=== PATIENT | male | born 1935 | race Caucasian/White ===

== ENCOUNTER → 2016-06-23 | Outpatient (CLI) | payer OTHER, BC ==
[~2016-06-23] MED LIST: ACET-1256 PO; ALBU1AER9 INH; AMLO10TA4 PO; ASPI-435 PO; ASTN; ATOR-26 PO; CANA1TAB3 PO; CARV12.52 PO; CHLO4TAB70 PO; CHOL100010 PO; CHOL200010 PO; CHRO200T3 PO; COEN100C7 PO; CYAN100020 SL; CYAN1TAB17 PO; DEXT30SU8 PO; DEXT30TA7 PO; FINA5TAB4 PO; FLUO0.05 TOP; GUAI1TAB69 PO; GUAISYP4 PO; HYDR-5688 PO; LDXO60 TOP; LIRA18IN SC; MELATAB2 PO; METF1000 PO; METR0.7527 EX; METR0.7527 TOP; METR1GEL3 TOP; MULTTAB58 PO; OXYC1TAB3 PO; PLV75 PO; POTA1TAB97 PO; PSEU60TA80 PO; SYMIN160 INH; TRIA0.1O12 TOP; VALS320T PO; VNTHFA/IN INH
[2016-06-23 09:48] LABS: BASO % 0.8 %; BASO ABS # 0.05 K/uL (0-0.2); COMPLETE YES; HEMATOCRIT 47.1 % (42-52); IG% 0.3 %; LYMPH % 12.2 %; LYMPH ABS # 0.74 K/uL (1.2-3.4); MEAN CELL VOLUME 90.2 fL (80-100); MEAN CORPUSCULAR HEMOGLOBIN 30.5 pg (25-34); MEAN CORPUSCULAR HGB CONC 33.8 g/dl (32-36); MEAN PLATELET VOLUME 10.5 fL (7.4-10.4); MONO % 9.6 %; NEUT % 74.1 %; PLATELET COUNT 134 K/uL (130-400); RED BLOOD COUNT 5.22 M/uL (4.7-6.1); WHITE BLOOD COUNT 6.06 K/uL (4.8-10.8)
[2016-06-23 10:20] LABS: ALB/GLOB RATIO 1.3 (0.9-2); ALT/SGPT 31 U/L (12-78); BLOOD UREA NITROGEN 15 mg/dl (7-18); CALCIUM 9.5 mg/dl (8.5-10.1); CARBON DIOXIDE 30 mmol/L (21-32); CHLORIDE 106 mmol/L (98-107); CHOLESTEROL 122 mg/dl (0-200); CREATININE 0.73 mg/dl (0.60-1.40); GLUCOSE 134 mg/dl (70-99); POTASSIUM 3.8 mmol/L (3.5-5.1); SODIUM 142 mmol/L (136-145); TRIGLYCERIDES 71 mg/dl (0-150); URIC ACID 2.6 mg/dl (2.6-7.2); VERY LOW DENSITY LIPOPROT CALC 14 mg/dl
[2016-06-23 10:34] LABS: ALKALINE PHOSPHATASE 79 U/L (45-117); AST/SGOT 14 U/L (15-37); HDL CHOLESTEROL 41 mg/dl; LDL CHOLESTEROL CALCULATED 67 mg/dl; PHOSPHORUS 2.2 mg/dl (2.5-4.9); THYROID STIMULATING HORMONE 0.913 uIu/ml (0.300-4.500)
[2016-06-23 10:36] LABS: ESTIMATED AVERAGE GLUCOSE 154 mg/dl; HA1C FLAG Normal (Normal)
[2016-06-24 11:58] LABS: C-REACTIVE PROT HIGHSEN 0.8 MG/L
--- NOTE | 2016-06-29 08:52 | CODING QUERY MEDICAL NECESSITY ---
SUPPORTING DIAGNOSIS NEEDED A supporting diagnosis is required for the test/procedure performed on this patient in order for us to be reimbursed by the patient's insurance. Please provide a supporting diagnosis for the following test/procedure listed below next to the test name along with your signature. *If there is no additional diagnosis for this patient that would support the following test/procedure please document that below next to the test/procedure. Test(s)/Procedure(s) that require a supporting diagnosis: * VITAMIN D 25-HYDROXY DIAGNOSIS: * VITAMIN B-12 LEVEL DIAGNOSIS: * C REACTIVE PROTEIN DIAGNOSIS: * DOS: 06/23/16 Provider Signature: Date: Thank you Dianelys Garcia Health Information Management Once completed, please kindly fax back to [phone] For questions please call [phone]
== END | disposition home or self-care (01) ==
LOC: C.LAB 08:13
PROVIDERS: ATTEND Family Medicine
DX: E11.9 Type 2 diabetes mellitus without complications (principal); E55.9 Vitamin D deficiency, unspecified; D51.9 Vitamin B12 deficiency anemia, unspecified; I25.10 Atherosclerotic heart disease of native coronary artery without angina pectoris

== ENCOUNTER → 2016-07-01 | Outpatient (CLI) | payer OTHER, BC ==
--- NOTE | 2016-07-01 12:41 | DIAGNOSTIC IMAGING REPORT ---
L-SPINE MIN 4 VIEWS ROUTINE CLINICAL HISTORY: CHRONIC LOW BACK PAIN COMPARISON STUDY: 11/24/2006 FINDINGS: There are moderately advanced multilevel degenerative changes most pronounced at the L3-4, L4-5, and L5-S1 levels. No acute fractures are visualized. There is mild fecal retention. The spinal canal appears narrowed and the AP diameter and underlying spinal stenosis is considered likely. IMPRESSION: Advanced multilevel degenerative change. Underlying spinal stenosis is suspected. No acute fractures. Electronically signed by: Cory Tanner M.D. 07/01/2016 12:39 PM Dictated Date/Time: 07/01/2016 12:38 PM
== END | disposition home or self-care (01) ==
LOC: C.RAD 11:47
PROVIDERS: ATTEND Family Medicine
DX: M54.5 Low back pain (principal); G89.29 Other chronic pain

== ENCOUNTER → 2016-07-07 | Outpatient (CLI) | payer OTHER, BC ==
--- NOTE | 2016-07-07 13:47 | DIAGNOSTIC IMAGING REPORT ---
TESTICULAR ULTRASOUND HISTORY: Mass MASS STAT COMPARISON: None. FINDINGS: Right testis: Maximum dimension 4.0 cm. Normal vascular flow. Left testis: Maximum dimension 4.0 cm. Normal vascular flow. Small left-sided hydrocele. 3. Several note is made of a small left hydrocele. Prosthetic pump is present. IMPRESSION: Normal testicular ultrasound. Small left-sided hydrocele. Reducible fat-containing right inguinal hernia. Prosthetic pump is present. Electronically signed by: Amilcar Calderon M.D. 07/07/2016 1:45 PM Dictated Date/Time: 07/07/2016 1:41 PM
== END | disposition home or self-care (01) ==
LOC: C.ULTR 13:09
PROVIDERS: ATTEND Family Medicine
DX: N50.9 Disorder of male genital organs, unspecified (principal); K40.90 Unilateral inguinal hernia, without obstruction or gangrene, not specified as recurrent

== ENCOUNTER → 2016-07-11 | Outpatient (CLI) | payer OTHER, BC ==
--- NOTE | 2016-07-11 07:54 | DIAGNOSTIC IMAGING REPORT ---
ABDOMEN AND PELVIS CT WITHOUT CONTRAST CT DOSE: 1148.44 mGycm HISTORY: Right-sided back pain. STONES TECHNIQUE: Multiaxial CT images of the abdomen and pelvis were performed without the use of intravenous and oral contrast according to the standard department stone protocol. COMPARISON STUDY: None. FINDINGS: The lung bases are clear. No fractures within the visualized osseous structures. Moderate to severe degenerative changes within the lower lumbar spine. Punctate stone within the gallbladder. A 9 mm hypodense lesion within the liver is technically too small to characterize. The unenhanced spleen, pancreas, and adrenal glands are unremarkable. Calcified abdominal aorta which is normal in caliber. No retroperitoneal or mesenteric lymphadenopathy. Minimal fat stranding within the central mesentery. This is of doubtful clinical significance. No renal or ureteral stones. No hydronephrosis. The bladder is unremarkable. There are 3 hypodense lesions within the left kidney. These are incompletely care chest on this noncontrast study but favor cysts. The 2.7 cm lesion within the upper pole demonstrates small amount of peripheral calcification. The dominant lesion within the lower pulmonary 7 cm. Small fat-containing right inguinal hernia. Suboptimal evaluation for bowel pathology due to the lack of intravenous and oral contrast. However, there is no definite bowel wall thickening or obstruction. Colonic diverticulosis. Moderate stool throughout the colon. Normal appendix. Penile prosthesis is noted. IMPRESSION: 1. No renal stones or hydronephrosis. 2. Cholelithiasis. 3. Hepatic and left renal hypodense lesions. These favor cysts. 4. Small fat-containing right inguinal hernia. 5. Colonic diverticulosis. 6. Moderate stool within the colon. Electronically signed by: Jordan Oliva M.D. 07/11/2016 7:52 AM Dictated Date/Time: 07/11/2016 7:44 AM
== END | disposition home or self-care (01) ==
LOC: C.CTS 07:20
PROVIDERS: ATTEND Family Medicine
DX: R10.9 Unspecified abdominal pain (principal); K80.20 Calculus of gallbladder without cholecystitis without obstruction; K76.9 Liver disease, unspecified; N28.9 Disorder of kidney and ureter, unspecified; K57.90 Diverticulosis of intestine, part unspecified, without perforation or abscess without bleeding

== ENCOUNTER → 2016-07-22 | Outpatient (CLI) | payer OTHER, BC ==
--- NOTE | 2016-07-22 13:31 | DIAGNOSTIC IMAGING REPORT ---
CT SCAN OF THE CHEST WITHOUT IV CONTRAST CLINICAL HISTORY: Follow-up abnormal chest CT. Pulmonary nodule. COMPARISON STUDY: Chest CT dated 06/24/2015. TECHNIQUE: CT scan of the thorax was performed from the thoracic inlet to the upper abdomen. Images are reviewed in the axial, sagittal, and coronal planes. IV contrast was not administered for this examination. CT DOSE: 544.78 mGy.cm FINDINGS: Thyroid: Imaged portions of the thyroid gland are normal in size and attenuation. Low-attenuation thyroid nodules measure up to 1.8 cm. These were seen previously and better characterized on prior thyroid ultrasounds. Thoracic aorta: There is atherosclerotic calcification of the thoracic aorta, which is normal in caliber and demonstrates 4-vessel variant arch anatomy. Heart: The heart is enlarged and without pericardial effusion. The coronary arteries and aortic valve leaflets are densely calcified. There is diminished attenuation of the cardiac blood pool as compared to the myocardium suggesting anemia. The pulmonary trunk is dilated, measuring 4 cm in diameter. This suggests pulmonary artery hypertension. Lungs and pleural spaces: There is no airspace consolidation or pleural effusion. The trachea and central airways are clear. There are scattered (less than 10) pulmonary and pleural-based nodules. These are similar in size and distribution to the 06/24/2015 examination. The largest nodule is seen in the left lower lobe on image #134 and measures 6 mm. A 3 mm nodule at the left apex is seen on image #32, and additional 2 to 3 mm nodules are scattered throughout both lungs. No new pulmonary nodules identified. Mediastinum: There is no mediastinal lymphadenopathy. [place]: Not well assessed without IV contrast. Axillae: There is no axillary lymphadenopathy. Upper abdomen: There is a tiny hiatal hernia. A 2 cm exophytic cyst is partially imaged thoracic from the upper pole of the left kidney. A 1.6 cm cyst is noted in the left lobe of the liver. Skeletal structures: The skeletal structures are osteopenic. Arthritic change is noted in the shoulders. Degenerative change is also seen throughout the thoracic spine. There are healed right-sided rib fractures. No lytic or blastic bony lesions are seen. IMPRESSION: 1. There are scattered (less than 10) indeterminant pulmonary nodules measuring up to 6 mm. These have not significantly changed in size or distribution from 06/24/2015. Continued follow-up is recommended to document 2 years of stability. 2. There is no airspace consolidation or pleural effusion. 3. Cardiomegaly with evidence of pulmonary artery hypertension. 4. Additional findings as detailed above. Please refer to below summary of Fleischner criteria recommendations for follow-up of incidental CT nodules (Selma Lopez, Guidelines for management of small pulmonary nodules detected on CT scans: A statement from the Fleischner Society, Radiology 237: [phone].) SOLID NODULES Solitary nodule size: <6 mm * low risk patients: no follow-up needed * high risk patients: optional CT at 12 months Solitary nodule size: 6-8 mm * low risk patients: follow-up at 6-12 months, then consider further follow-up at 18-24 months * high risk patients: initial follow-up CT at 6-12 months and then at 18-24 months if no change Solitary nodule size: >8 mm * either low or high risk patients - consider follow-up CT at 3 months, and/or CT-PET, and/or biopsy Multiple nodules size: <6 mm * low risk patients: no routine follow-up * high risk patients: optional CT at 12 months Multiple nodules size: 6-8 mm * low risk patients: follow-up at 3-6 months, then consider further follow-up at 18-24 months * high risk patients: follow-up at 3-6 months, then at 18-24 months if no change Multiple nodules size: >8 mm * low risk patients: follow-up at 3-6 months, then consider further follow-up at 18-24 months * high risk patients: follow-up at 3-6 months, then at 18-24 months if no change Note: newly detected indeterminate nodule in persons 35 years of age or older. * low risk patients: minimal or absent history of smoking and/or other known risk factors * high risk patients: history of smoking or of other known risk factors (e.g. first degree relative with lung cancer, or exposure to asbestos, radon, uranium) * if a nodule up to 8 mm is partly solid or is ground glass further follow-up is required after 24 months to exclude possible slow growing adenocarcinoma (POLY) SUBSOLID NODULES Solitary pure ground-glass nodule * nodule size <6 mm - no CT follow-up required * nodule size >=6 mm - follow-up CT at 6-12 months, then every 2 years until 5 years Solitary part-solid nodule * nodule size <6 mm - no CT follow-up required * nodule size >=6 mm - follow-up CT at 3-6 months. If unchanged, and solid component remains <6 mm, then annual follow-up for 5 years Multiple subsolid nodules * nodule size <6 mm - follow-up CT at 3-6 months, consider further follow-up at 2 and 4 years if stable * nodule size >=6 mm - follow-up CT at 3-6 months, subsequent management based on the most suspicious nodule(s) Electronically signed by: Adryan Lozano M.D. 07/22/2016 1:30 PM Dictated Date/Time: 07/22/2016 1:21 PM
== END | disposition home or self-care (01) ==
LOC: C.CTS 13:09
PROVIDERS: ATTEND Family Medicine
DX: R91.8 Other nonspecific abnormal finding of lung field (principal); I51.7 Cardiomegaly

== ENCOUNTER → 2016-08-01 | Outpatient (CLI) | payer OTHER, BC ==
--- NOTE | 2016-08-01 18:40 | DIAGNOSTIC IMAGING REPORT ---
PELVIS/BILATERAL HIP 2 VIEWS CLINICAL HISTORY: PELVIC PAIN pain COMPARISON STUDY: FINDINGS: Moderate degenerative change of the hips bilaterally. No evidence for acetabular protrusion. Mild degenerative change sacroiliac joints. Penile prosthetic is in position. IMPRESSION: Moderate degenerative change of the hips. No acute process. Electronically signed by: Amilcar Calderon M.D. 08/01/2016 6:38 PM Dictated Date/Time: 08/01/2016 6:37 PM
== END | disposition home or self-care (01) ==
LOC: C.RAD 18:04
PROVIDERS: ATTEND Family Medicine
DX: R10.2 Pelvic and perineal pain (principal)

== ENCOUNTER 2016-08-04 12:59 | Emergency (ER) | payer OTHER, BC ==
[~2016-08-04] VITALS: Ht 185.4 cm; Wt 96.0 kg
[~2016-08-04 12:59] MED LIST changes: -ACET-1256 PO; -CHLO4TAB70 PO; -CHOL200010 PO; -COEN100C7 PO; -CYAN1TAB17 PO; -DEXT30SU8 PO; -GUAI1TAB69 PO; -GUAISYP4 PO; -HYDR-5688 PO; -LDXO60 TOP; -MELATAB2 PO; -METR0.7527 EX; -METR0.7527 TOP; -OXYC1TAB3 PO; -PSEU60TA80 PO; -VNTHFA/IN INH
[2016-08-04 13:09] VITALS: TEMP 36.9; Ht 185.4 cm; Wt 96.0 kg
[2016-08-04] MEDS ORDERED: KETOROLAC TROMETHAMINE 30 MG/ML VIAL IV STA (13:40)
[2016-08-04] MEDS ORDERED: ATOR-26 PO (14:14)
[2016-08-04] MEDS ORDERED: CHLO4TAB70 PO (14:14)
[2016-08-04] MEDS ORDERED: LDXO60 TOP (14:14)
[2016-08-04] MEDS ORDERED: CHOL200010 PO (14:14)
[2016-08-04] MEDS ORDERED: CARV12.52 PO (14:14)
[2016-08-04] MEDS ORDERED: DEXT30SU8 PO (14:14)
[2016-08-04] MEDS ORDERED: PSEU60TA80 PO (14:14)
[2016-08-04] MEDS ORDERED: VNTHFA/IN INH (14:14)
[2016-08-04] MEDS ORDERED: METR0.7527 TOP (14:14)
[2016-08-04 14:18] LABS: BASO % 0.2 %; BASO ABS # 0.02 K/uL (0-0.2); COMPLETE YES; EOS % 0.3 %; HEMATOCRIT 49.6 % (42-52); IG% 0.2 %; LYMPH % 7.5 %; LYMPH ABS # 0.84 K/uL (1.2-3.4); MEAN CELL VOLUME 89.4 fL (80-100); MEAN CORPUSCULAR HEMOGLOBIN 31.2 pg (25-34); MEAN CORPUSCULAR HGB CONC 34.9 g/dl (32-36); MEAN PLATELET VOLUME 9.9 fL (7.4-10.4); MONO % 7.8 %; PLATELET COUNT 150 K/uL (130-400); RED BLOOD COUNT 5.55 M/uL (4.7-6.1); WHITE BLOOD COUNT 11.22 K/uL (4.8-10.8)
[2016-08-04 14:30] LABS: PROTHROMBIN TIME (PATIENT) 11.2 SECONDS (9.0-12.0)
[2016-08-04 14:37] LABS: BUN/CREATININE RATIO 18.8 (10-20); CALCIUM 10.5 mg/dl (8.5-10.1); CREATININE 0.83 mg/dl (0.60-1.40)
[2016-08-04 14:47] LABS: URINE APPEARANCE CLEAR (CLEAR); URINE BILIRUBIN NEG (NEG); URINE COLOR YELLOW; URINE NITRITE NEG (NEG); URINE PH 5.5 (4.5-7.5); URINE SPECIFIC GRAVITY > 1.045 (1.000-1.030); UROBILINOGEN NEG (NEG)
[2016-08-04 14:49] LABS: MANUAL MICROSCOPIC REQUIRED? NO; REVIEW REQ? NO
[2016-08-04] MEDS ORDERED: OXYCODONE HCL IR 5 MG TAB (IMMEDIATE RELEASE) PO STA (15:56)
[2016-08-04] MEDS ORDERED: OXYC1TAB3 PO (17:07)
[2016-08-04 17:32] VITALS: BP 153/94; PULSE 88; O2SAT 95
--- NOTE | 2016-08-04 20:25 | EMERGENCY ROOM VISIT NOTE ---
History Report prepared by Liam: Katrin Ng Under the Supervision of: Dr. Reggie De La Vega M.D. First contact with patient: 13:19 Chief Complaint: FLANK PAIN Stated Complaint: EXTREME PAIN R SIDE/BACK AND HIP History of Present Illness The patient is an 81 year old male who presents to the Emergency Room with complaints of an episode of right flank pain starting about a month ago. He states that his hip tends to come out once a year and that he can put it back in by rocking on the floor. He states that he tried this and it didn't work. He denies any falls. He notes that he has a hernia on the right side that has recently started to bother him. The patient notes that this is the most extreme it has ever been. He states he had a CT and X-ray done that found nothing before. He came to the ED because he states that he could hardly walk because of the pain. He reports taking Tylenol with no relief. The patient also complains of irregular bowel movements. He notes that he took Erin- lax and suppositories with no relief. The patient states that he is on Aspirin and Plavix. He notes that he did have a stent put in. The patient denies abdominal pain and any urinary symptoms. Source of History: patient, spouse/significant other Onset: a month ago Position: other (right flank) Timing: other (episode) Associated Symptoms: + back pain, No abdominal pain, No urinary symptoms Note: The patient complains of constipation. Review of Systems See HPI for pertinent positives & negatives. A total of 10 systems reviewed and were otherwise negative. Past Medical & Surgical Medical Problems: (1) Diabetes mellitus (2) Emphysema/COPD (3) Heart disease (4) HTN (hypertension) Old medical records were reviewed. Nurse's notes were reviewed and I agree with. Family History Cancer Diabetes mellitus FH: heart disease FHx: lung disease Hypertension Social History Smoking Status: Never Smoker Alcohol Use: occasionally Drug Use: none Marital Status: Housing Status: lives with significant other Occupation Status: retired Current/Historical Medications Scheduled Amlodipine Besylate (Norvasc), 10 MG PO DAILY Aspirin (Aspirin 81), 81 MG PO QPM Atorvastatin (Lipitor), 80 MG PO QPM Azelastine Hcl (Astelin Nasal [place]), 1-2 SPRAYS NA DIRECTED Budesonide/Formoterol Fumarate (Symbicort 160/4.5 Inhaler ), 2 PUFFS INH BID Canagliflozin (Invokana), 300 MG PO QAM Carvedilol (Coreg), 12.5 MG PO BID Chlorpheniramine Maleate (Chlorpheniramine Maleate), 4 MG PO DIRECTED Cholecalciferol (Vitamin D), 2,000 UNITS PO BID Chromium (Chromium), 200 MCG PO QPM Clopidogrel Bisulfate (Clopidogrel), 75 MG PO QAM Cyanocobalamin (Vitamin B12), 2,500 MCG SL DAILY Dextromethorphan Polistirex (Robitussin 12 Hour Cough), 1 DOSE PO DIRECTED ON PKG Finasteride (Proscar), 5 MG PO DAILY Fluocinonide (Lidex 0.05% Oint), 1 APPLN TOP DIRECTED Liraglutide (Victoza), 1.8 MG SC DAILY Metformin Hcl (Glucophage), 1,000 MG PO BID Metronidazole (Topical) (Metrogel), 1 APPLN TOP DIRECTED Multiple Vitamin (Multivitamin), 1 TAB PO QPM Potassium Chloride (K-Tab), 20 MEQ PO BID Pseudoephedrine-Guaifenesin (Mucinex D), 1 TAB PO BID Valsartan (Diovan), 320 MG PO DAILY Scheduled PRN Albuterol Hfa (Ventolin Hfa), 2-4 PUFFS INH Q6H PRN for SOB/Wheezing Oxycodone Immediate Rel Tab (Roxicodone Ir), 1 TAB PO Q6 PRN for Severe Pain Allergies Coded Allergies: No Known Allergies (Unverified , 08/12/05) Physical Exam Vital Signs Date Time Temp Pulse Resp B/P Pulse Ox O2 Delivery O2 Flow Rate FiO2 08/04/16 17:32 88 18 153/94 95 08/04/16 16:21 101 18 134/87 95 Room Air 08/04/16 13:09 36.9 101 18 155/96 97 Room Air Physical Exam General: Well developed well nourished in no acute distress, breathing comfortably on room air. Normal speech. Non-ill appearing older male. No acute distress. HEENT: Normal cephalic atraumatic. Pupils are equal round and reactive to light. Extraocular movements are intact. Oropharynx is pink with moist mucous membranes. No swelling of the mouth lips or tongue. Neck: Supple with a midline trachea. No meningeal signs or stiffness, no JVD or bruits. No Stridor. Chest: Clear to auscultation bilaterally. No wheezes or rhonchi. No increased work of breathing. Heart: regular rate and rhythm. Abdomen: Soft nontender, nondistended without rebound guarding or rigidity. Pain along right anterior pelvis. Extremities: No cyanosis clubbing or edema. No calf tenderness or assymetry Spine/Back. Non tender to palpation. No CVA tenderness Skin: Good turgor. Rash extending from back, no redness or warmth Neurologic exam: Cranial nerves two through 12 are intact. Motor and sensation are intact and symmetrical throughout. Medical Decision & Procedures Laboratory Results 08/04/16 14:00 Red Blood Count 5.55, Mean Corpuscular Volume 89.4, Mean Corpuscular Hemoglobin 31.2, Mean Corpuscular Hemoglobin Concent 34.9, Mean Platelet Volume 9.9, Neutrophils (%) (Auto) 84.0, Lymphocytes (%) (Auto) 7.5, Monocytes (%) (Auto) 7.8, Eosinophils (%) (Auto) 0.3, Basophils (%) (Auto) 0.2, Neutrophils # (Auto) 9.43, Lymphocytes # (Auto) 0.84, Monocytes # (Auto) 0.88, Eosinophils # (Auto) 0.03, Basophils # (Auto) 0.02 08/04/16 14:00 Test 08/04/16 14:00 08/04/16 14:07 White Blood Count 11.22 K/uL (4.8-10.8) Red Blood Count 5.55 M/uL (4.7-6.1) Hemoglobin 17.3 g/dL (14.0-18.0) Hematocrit 49.6 % (42-52) Mean Corpuscular Volume 89.4 fL (80-100) Mean Corpuscular Hemoglobin 31.2 pg (25-34) Mean Corpuscular Hemoglobin Concent 34.9 g/dl (32-36) Platelet Count 150 K/uL (130-400) Mean Platelet Volume 9.9 fL (7.4-10.4) Neutrophils (%) (Auto) 84.0 % Lymphocytes (%) (Auto) 7.5 % Monocytes (%) (Auto) 7.8 % Eosinophils (%) (Auto) 0.3 % Basophils (%) (Auto) 0.2 % Neutrophils # (Auto) 9.43 K/uL (1.4-6.5) Lymphocytes # (Auto) 0.84 K/uL (1.2-3.4) Monocytes # (Auto) 0.88 K/uL (0.11-0.59) Eosinophils # (Auto) 0.03 K/uL (0-0.5) Basophils # (Auto) 0.02 K/uL (0-0.2) RDW Standard Deviation 44.7 fL (36.4-46.3) RDW Coefficient of Variation 13.6 % (11.5-14.5) Immature Granulocyte % (Auto) 0.2 % Immature Granulocyte # (Auto) 0.02 K/uL (0.00-0.02) Prothrombin Time 11.2 SECONDS (9.0-12.0) Prothromb Time International Ratio 1.0 (0.9-1.1) Activated Partial Thromboplast Time 25.4 SECONDS (21.0-31.0) Partial Thromboplastin Ratio 1.0 Anion Gap 8.0 mmol/L (3-11) Est Creatinine Clear Calc Drug Dose 85.2 ml/min Estimated GFR () 95.6 Estimated GFR (Non- 82.5 BUN/Creatinine Ratio 18.8 (10-20) Calcium Level 10.5 mg/dl (8.5-10.1) Total Bilirubin 1.0 mg/dl (0.2-1) Direct Bilirubin 0.3 mg/dl (0-0.2) Aspartate Amino Transf (AST/SGOT) 18 U/L (15-37) Alanine Aminotransferase (ALT/SGPT) 37 U/L (12-78) Alkaline Phosphatase 82 U/L (45-117) Total Protein 7.4 gm/dl (6.4-8.2) Albumin 4.2 gm/dl (3.4-5.0) Lipase 150 U/L (73-393) Urine Color YELLOW Urine Appearance CLEAR (CLEAR) Urine pH 5.5 (4.5-7.5) Urine Specific [place] > 1.045 (1.000-1.030) Urine Protein NEG (NEG) Urine Glucose (UA) 3+ (NEG) Urine Ketones TRACE (NEG) Urine Occult Blood NEG (NEG) Urine Nitrite NEG (NEG) Urine Bilirubin NEG (NEG) Urine Urobilinogen NEG (NEG) Urine Leukocyte Esterase NEG (NEG) Laboratory studies as stated above per my review. Medications Administered Medications (Trade) Dose Ordered Sig/Madeleine Route Start Time Stop Time Status Last Admin Dose Admin Ketorolac Tromethamine (Toradol Inj) 30 mg NOW STAT IV 08/04/16 13:40 08/04/16 13:41 DC 08/04/16 14:00 30 MG Oxycodone HCl (Roxicodone Immediate Rel Tab) 5 mg NOW STAT PO 08/04/16 15:56 08/04/16 15:57 DC 08/04/16 16:20 5 MG ED Course 1330: Past medical records reviewed. The patient was evaluated in room C11B, and a complete history and physical examination were performed. 1340: Ordered Toradol Inj 30 mg IV. 1554: I reevaluated the patient and he is resting more comfortably. He is sitting in his chair. I ordered an Oral Oxy IR that he has had previously with no difficulties. 1556: Ordered Oxycodone HCl 5 mg PO. 1708: Upon reevaluation, the patient is resting comfortably. I discussed the results and treatment plan with him. The patient verbalized agreement of the treatment plan. The patient was discharged home. Medical Decision Differential diagnoses include lumbar disc disease, musculoskeletal, shingles, infection, electrolyte or metabolic abnormality This patient comes in as described above he's been having pain around his right hip along the iliac crest area on exam he is no redness or warmth. He looks well the pain is worse with movement he's had this off and on for years but got worse lately. On exam, .he does have a rash is possible is could be shingles that's resolving. This could be more of post herpetic neuralgia. His doctor has had an extensive workup and which I reviewed. He's had a recent CAT scan of the abdomen which was unremarkable. he has no evidence of stones or aneurysm or any other pathology. He does have a groin hernia on the right and I examined him and there is no evidence of incarceration or pain or acute problems from this. He has no testicular pain or problems or swelling he had a recent testicular ultrasound as well. He also had a recent chest CT which showed no acute findings which would explain his symptoms. he does have some incidental gallstones. blood work was obtained here IV access established. He was given Toradol 30 mg IV. He has no acute electrolyte or metabolic abnormalities. He has nothing to suggest acute infection. He was also given OxyIR 5 mg by mouth is feeling a lot better. he does feel up to going home. He was given a small prescription for OxyIR 5 mg that he can use one or 2 pills every 4-6 hours as needed. He was warned that this could make him drowsy- do not take before drinking, driving, working. He was happy with the plan and was discharged home. he should follow-up with Dr. Calderon on Monday for recheck. Impression Primary Impression: Right hip pain Scribe Attestation The scribe's documentation has been prepared under my direction and personally reviewed by me in its entirety. I confirm that the note above accurately reflects all work, treatment, procedures, and medical decision making performed by me. Departure Information Dispostion Home / Self-Care Prescriptions Oxycodone Immediate Rel Tab (ROXICODONE IR) 5 Mg Tab 1 TAB PO Q6 Y for Severe Pain, #15 TAB Prov: Reggie De La Vega M.D. 08/04/16 Referrals Ricardo Calderon M.D. (PCP) Forms HOME CARE DOCUMENTATION FORM, IMPORTANT VISIT INFORMATION Patient Instructions My [facility] Additional Instructions Rest Drink plenty of fluids Be careful when getting up and down Use OxyIR 5 mg, 1 pill every 6 hours as needed. OxyIR may make you drowsy and do not take before drinking, driving, working Be careful getting up and down Ensure that you do have your MRI tomorrow Return if: Increasing pain, numbness or weakness, fever or chills, any new problems or concerns.
[2016-11-15] MEDS ORDERED: CYAN1TAB17 PO (15:13)
[2016-11-15] MEDS ORDERED: MELATAB2 PO (15:13)
[2016-11-16] MEDS ORDERED: ACET-1256 PO (08:48)
[2016-11-18] MEDS ORDERED: GUAI1TAB69 PO (10:46)
[2016-11-18] MEDS ORDERED: ASTN (10:46)
[2016-11-18] MEDS ORDERED: COEN100C7 PO (10:46)
[2016-11-18] MEDS ORDERED: GUAISYP4 PO (10:46)
[2016-11-18] MEDS ORDERED: CHLO4TAB70 PO (10:46)
[2016-11-18] MEDS ORDERED: METR0.7527 EX (10:46)
[2016-12-01] MEDS ORDERED: HYDR-5688 PO (11:48)
== END 2016-08-04 17:33 | disposition home or self-care (01) ==
LOC: C.EDB 13:01 → C.EDC 17:33
DX: M25.551 Pain in right hip (principal); R21 Rash and other nonspecific skin eruption; E11.9 Type 2 diabetes mellitus without complications; J43.9 Emphysema, unspecified; I10 Essential (primary) hypertension; Z80.9 Family history of malignant neoplasm, unspecified; Z83.3 Family history of diabetes mellitus; Z82.49 Family history of ischemic heart disease and other diseases of the circulatory system; Z79.82 Long term (current) use of aspirin; Z79.899 Other long term (current) drug therapy; Z79.01 Long term (current) use of anticoagulants; K46.9 Unspecified abdominal hernia without obstruction or gangrene

== ENCOUNTER → 2016-08-05 | Outpatient (CLI) | payer OTHER, BC ==
[~2016-08-05] MED LIST changes: +ACET-1256 PO; -ALBU1AER9 INH; +CHLO4TAB70 PO; -CHOL100010 PO; +CHOL200010 PO; +COEN100C7 PO; +CYAN1TAB17 PO; +DEXT30SU8 PO; -DEXT30TA7 PO; -FLUO0.05 TOP; +GUAI1TAB69 PO; +GUAISYP4 PO; +HYDR-5688 PO; +LDXO60 TOP; +MELATAB2 PO; +METR0.7527 EX; +METR0.7527 TOP; -METR1GEL3 TOP; +OXYC1TAB3 PO; +PSEU60TA80 PO; -TRIA0.1O12 TOP; +VNTHFA/IN INH
--- NOTE | 2016-08-05 13:07 | DIAGNOSTIC IMAGING REPORT ---
MRI pelvis PELVIS WITHOUT CONTRAST (MRI) CLINICAL HISTORY: BILATERAL HIP PAIN hip pain TECHNIQUE: Multi axial MRI acquisition COMPARISON STUDY: None FINDINGS: Unremarkable signal characteristics the osseous structures. Minimal degenerative sclerosis of the sacroiliac joints at their superior margins. Minimal degenerative changes of the articular services of the hips bilaterally. No significant bone marrow replacing process. No evidence for acetabular protrusion. Signal characteristics of the muscular structure and are unremarkable. There is no evidence for significant adenopathy. There is a fat-containing right inguinal hernia. IMPRESSION: Fat-containing right inguinal hernia. Mild degenerative changes of the articular services the hips as well as superior margins of the sacroiliac joints. Study is otherwise negative. Electronically signed by: Amilcar Calderon M.D. 08/05/2016 1:06 PM Dictated Date/Time: 08/05/2016 1:00 PM
== END | disposition home or self-care (01) ==
LOC: C.MRIBC 11:41
PROVIDERS: ATTEND Family Medicine
DX: K40.90 Unilateral inguinal hernia, without obstruction or gangrene, not specified as recurrent (principal)

== ENCOUNTER → 2016-10-03 | Outpatient (CLI) | payer OTHER, BC ==
[2016-10-03 09:44] LABS: BASO % 0.3 %; BASO ABS # 0.02 K/uL (0-0.2); COMPLETE YES; EOS % 3.1 %; HEMATOCRIT 47.2 % (42-52); IG% 0.1 %; LYMPH % 12.4 %; LYMPH ABS # 0.92 K/uL (1.2-3.4); MEAN CORPUSCULAR HEMOGLOBIN 30.6 pg (25-34); MEAN CORPUSCULAR HGB CONC 33.3 g/dl (32-36); MEAN PLATELET VOLUME 10.2 fL (7.4-10.4); MONO % 7.8 %; NEUT % 76.3 %; PLATELET COUNT 145 K/uL (130-400); RED BLOOD COUNT 5.13 M/uL (4.7-6.1); WHITE BLOOD COUNT 7.41 K/uL (4.8-10.8)
[2016-10-03 10:05] LABS: ESTIMATED AVERAGE GLUCOSE 151 mg/dl; HA1C FLAG Normal (Normal)
[2016-10-03 10:21] LABS: ALB/GLOB RATIO 1.2 (0.9-2); ALT/SGPT 41 U/L (12-78); AST/SGOT 23 U/L (15-37); BLOOD UREA NITROGEN 11 mg/dl (7-18); BUN/CREATININE RATIO 15.1 (10-20); CALCIUM 9.6 mg/dl (8.5-10.1); CARBON DIOXIDE 28 mmol/L (21-32); CHLORIDE 107 mmol/L (98-107); CHOLESTEROL 117 mg/dl (0-200); CREATININE 0.72 mg/dl (0.60-1.40); GLUCOSE 129 mg/dl (70-99); PHOSPHORUS 2.6 mg/dl (2.5-4.9); POTASSIUM 4.2 mmol/L (3.5-5.1); SODIUM 142 mmol/L (136-145); TRIGLYCERIDES 75 mg/dl (0-150); URIC ACID 2.7 mg/dl (2.6-7.2); VERY LOW DENSITY LIPOPROT CALC 15 mg/dl
[2016-10-03 10:27] LABS: ALKALINE PHOSPHATASE 80 U/L (45-117); CHOLESTEROL/HDL RATIO 2.9; HDL CHOLESTEROL 41 mg/dl; LDL CHOLESTEROL CALCULATED 61 mg/dl; THYROID STIMULATING HORMONE 0.769 uIu/ml (0.300-4.500)
== END | disposition home or self-care (01) ==
LOC: C.LAB 08:36
PROVIDERS: ATTEND Family Medicine
DX: R73.09 Other abnormal glucose (principal); E55.9 Vitamin D deficiency, unspecified; D51.9 Vitamin B12 deficiency anemia, unspecified

== ENCOUNTER → 2016-11-25 | Day surgery (SDC) | payer OTHER, BC ==
[2016-11-15 15:17] VITALS: BMI 28.0
[~2016-11-25] VITALS: Ht 182.9 cm; Wt 94.1 kg
[~2016-11-25] MED LIST changes: -CYAN100020 SL; -DEXT30SU8 PO; +LIDOCAINE HCL 2% 2 ML VIAL (20MG/ML) ONE; -METR0.7527 TOP; -OXYC1TAB3 PO; -PLV75 PO; +PROPOFOL IV EMULSION 10 MG/ML 20 ML VIAL IV ONE; -PSEU60TA80 PO; +SODIUM CHLORIDE 0.9% 500ML 500 ML IV ONE
[2016-11-25 10:42] VITALS: Ht 182.9 cm; Wt 94.1 kg
[2016-11-25 10:59] VITALS: TEMP 36.6
--- NOTE | 2016-11-25 11:17 | Endo History and Physical ---
History & Physical Date of Service: Nov 25, 2016. Chief Complaint: POSITIVE HEME STOOL Referring Physician: DR. PELAEZ History of Present Illness 81 yo CM who presents for colonoscopy secondary to heme positive stool. Past Surgical History Hx Cardiac Surgery: Yes (HEART CATH, STENT X1) Hx Internal Defibrillator: No Hx Pacemaker: No Hx Abdominal Surgery: No Hx of Implantable Prosthesis: No Hx Post-Op Nausea and Vomiting: No Hx Cancer Surgery: Yes (MOHS ON NOSE) Hx Thoracic Surgery: No Hx Orthopedic: No Hx Urinary Tract Surgery: No Family History None Social History Smoking Status: Never Smoker Hx Substance Use: No Hx Alcohol Use: Yes (COUPLE PER MONTH) Allergies Coded Allergies: Adhesives (Verified Allergy, Unknown, REDNESS, 11/25/16) NO KNOWN DRUG ALLERGIES (Verified Allergy, Unknown, ., 11/25/16) Current Medications Reported Home Medications Medications Dose Route/Sig Max Daily Dose Days Date Category Dose Instructions Coq10 (Coenzyme Q10 (Ubidecarenone)) 100 Mg Cap 100 Mg PO QAM 11/18/16 Reported Tylenol (Acetaminophen) 500 Mg Tab 1,000 Mg PO HS PRN 11/16/16 Reported Melatonin Maximum Strengt (Melatonin) 5 Mg Tab 3 Tabs PO HS 11/15/16 Reported B-12 (Cyanocobalamin) 2,500 Mcg Tab 1 Tab PO QAM 11/15/16 Reported Ventolin Hfa (Albuterol) 200 Puffs/11290 Mcg Aers 2-4 Puffs INH Q6H PRN 08/04/16 Reported Lipitor (Atorvastatin Calcium) 80 Mg Tab 80 Mg PO QPM 08/04/16 Reported Vitamin D (Cholecalciferol) 2,000 Unit Cap 2,000 Units PO BID 08/04/16 Reported Coreg (Carvedilol) 12.5 Mg Tab 12.5 Mg PO BID 08/04/16 Reported Norvasc (Amlodipine Besylate) 10 Mg Tab 10 Mg PO QAM 11/19/15 Reported Glucophage (Metformin Hcl) 1,000 Mg Tab 1,000 Mg PO BID 11/19/15 Reported Aspirin 81 (Aspirin) 81 Mg Tab 81 Mg PO QPM 09/24/14 Reported ON HOLD PER MD UNTIL POST OP Chromium 200 Mcg Tab 200 Mcg PO QPM 09/24/14 Reported Diovan (Valsartan) 320 Mg Tab 320 Mg PO QAM 09/24/14 Reported Proscar (Finasteride) 5 Mg Tab 5 Mg PO QAM 09/24/14 Reported Invokana (Canagliflozin) 300 Mg Tab 300 Mg PO DAILYBB 09/24/14 Reported Multivitamin (Multiple Vitamin) 1 Tab Tab 1 Tab PO QPM 09/24/14 Reported K-Tab (Potassium Chloride) 20 Meq Tab 20 Meq PO BID 09/24/14 Reported Symbicort 160/4.5 Inhaler (Budesonide/Formoterol Fumarate) Aero 2 Puffs INH BID 09/24/14 Reported Victoza (Liraglutide) 18 Mg/3 Ml Inj 1.8 Mg SC DAILYBB 09/24/14 Reported Vital Signs Weight (Kilograms): 94.09 Height (Feet): 6 Height (Inches): 0 Date Time Temp Pulse Resp B/P (MAP) Pulse Ox O2 Delivery O2 Flow Rate FiO2 11/25/16 10:59 36.6 118 20 157/94 (115) 97 Room Air Physical Exam General Appearance: WD/WN, no apparent distress Respiratory/Chest: Auscultation: breath sounds normal Cardiovascular: Heart Auscultation: RRR Abdomen: Bowel Sounds: normal Inspection & Palpation: soft, non-distended, no tenderness, guarding & rebound Assessment and Plan Assessment: 81 yo CM who presents for colonoscopy secondary to heme positive stool. Plan: Proceed with colonoscopy
--- NOTE | 2016-11-25 11:51 | Discharge Instructions ---
Endoscopy Patient Instructions Date / Procedure(s) Performed Nov 25, 2016. Colonoscopy Allergy Information Coded Allergies: Adhesives (Verified Allergy, Unknown, REDNESS, 11/25/16) NO KNOWN DRUG ALLERGIES (Verified Allergy, Unknown, ., 11/25/16) Discharge Date / Findings Nov 25, 2016. Colon polyps Diverticulosis Internal hemorrhoids Medication Instructions Stopped Medication(s): METFORMIN OK to resume all medications today as prescribed Reported Home Medications Medications Dose Route/Sig Max Daily Dose Days Date Category Dose Instructions Coq10 (Coenzyme Q10 (Ubidecarenone)) 100 Mg Cap 100 Mg PO QAM 11/18/16 Reported Tylenol (Acetaminophen) 500 Mg Tab 1,000 Mg PO HS PRN 11/16/16 Reported Melatonin Maximum Strengt (Melatonin) 5 Mg Tab 3 Tabs PO HS 11/15/16 Reported B-12 (Cyanocobalamin) 2,500 Mcg Tab 1 Tab PO QAM 11/15/16 Reported Ventolin Hfa (Albuterol) 200 Puffs/13954 Mcg Aers 2-4 Puffs INH Q6H PRN 08/04/16 Reported Lipitor (Atorvastatin Calcium) 80 Mg Tab 80 Mg PO QPM 08/04/16 Reported Vitamin D (Cholecalciferol) 2,000 Unit Cap 2,000 Units PO BID 08/04/16 Reported Coreg (Carvedilol) 12.5 Mg Tab 12.5 Mg PO BID 08/04/16 Reported Norvasc (Amlodipine Besylate) 10 Mg Tab 10 Mg PO QAM 11/19/15 Reported Glucophage (Metformin Hcl) 1,000 Mg Tab 1,000 Mg PO BID 11/19/15 Reported Aspirin 81 (Aspirin) 81 Mg Tab 81 Mg PO QPM 09/24/14 Reported ON HOLD PER MD UNTIL POST OP Chromium 200 Mcg Tab 200 Mcg PO QPM 09/24/14 Reported Diovan (Valsartan) 320 Mg Tab 320 Mg PO QAM 09/24/14 Reported Proscar (Finasteride) 5 Mg Tab 5 Mg PO QAM 09/24/14 Reported Invokana (Canagliflozin) 300 Mg Tab 300 Mg PO DAILYBB 09/24/14 Reported Multivitamin (Multiple Vitamin) 1 Tab Tab 1 Tab PO QPM 09/24/14 Reported K-Tab (Potassium Chloride) 20 Meq Tab 20 Meq PO BID 09/24/14 Reported Symbicort 160/4.5 Inhaler (Budesonide/Formoterol Fumarate) Aero 2 Puffs INH BID 09/24/14 Reported Victoza (Liraglutide) 18 Mg/3 Ml Inj 1.8 Mg SC DAILYBB 09/24/14 Reported Provider Instructions Activity Restrictions - No exercising or heavy lifting for 24 hours. - Do not drink alcohol the day of the procedure. - Do not drive a car or operate machinery until the day after the procedure. - Do not make any important decisions or sign important papers in 24 hours after the procedure. Following Day: - Return to full activity which may include returning to work/school. Diet Start your diet with liquids and light foods (jello, soup, juice, toast). Then eat your usual diet if not nauseated. Treatment For Common After Affects For mild abdominal pain, bloating, or excessive gas: - Rest - Eat lightly - Lie on right side Follow-Up Information Follow-up with DR. PELAEZ as scheduled Anesthesia Information What You Should Know You have had a procedure that required some medicine to reduce anxiety and discomfort. This treatment is called moderate sedation. After receiving the treatment, you may be sleepy, but you will be able to breathe on your own. The effects of the treatment may last for several hours. Follow these instructions along with Activity/Diet recommendations noted above: * Do NOT do anything where dizziness or clumsiness would be dangerous. * Rest quietly at home today, then you can be up and about tomorrow. * Have a responsible person stay with you the rest of today. * You may have had an I.V. today. If so, you may take the dressing off later today. Recommendations Call your doctor if: * Trouble breathing * Continuous vomiting for more than 24 hours * Temperature above 101 degrees * Severe abdominal pain or bloating * Pain not relieved by pain medicine ordered * There is increased drainage or redness from any incision * A large amount of rectal bleeding greater than 2-3 tablespoons. (If you had a polyp/s removed or have hemorrhoids, a small amount of blood - from the rectum is to be expected.) * You have any unanswered questions or concerns. IN THE EVENT OF A SERIOUS EMERGENCY, GO TO THE NEAREST EMERGENCY ROOM Your discharge instructions were prepared by provider Anant Lomax. Patient Instructions Signature Page Daniel Alvarado Patient (or Guardian) Signature/Date: I have read and understand the instructions given to me by my caregivers. Caregiver/RN/Doctor Signature/Date: The above-named patient and/or guardian has received patient instructions on this date. + Original Patient Signature Page (only) stays with chart. Please make copy for patient.
--- NOTE | 2016-11-25 11:55 | GI REPORT ---
Procedure Date: 11/25/2016 11:27 AM Procedure: Colonoscopy Indications: Heme positive stool Medicines: Monitored Anesthesia Care Complications: No immediate complications. Estimated Blood Loss: Estimated blood loss: none. Procedure: Pre-Anesthesia Assessment: - Prior to the procedure, a History and Physical was performed, and patient medications and allergies were reviewed. The patient's tolerance of previous anesthesia was also reviewed. The risks and benefits of the procedure and the sedation options and risks were discussed with the patient. All questions were answered, and informed consent was obtained. Prior Anticoagulants: The patient has taken aspirin, last dose was 1 day prior to procedure. ASA Grade Assessment: III - A patient with severe systemic disease. After reviewing the risks and benefits, the patient was deemed in satisfactory condition to undergo the procedure. After I obtained informed consent, the scope was passed under direct vision. Throughout the procedure, the patient's blood pressure, pulse, and oxygen saturations were monitored continuously. The scope was introduced through the anus and advanced to the cecum, identified by appendiceal orifice and ileocecal valve. The colonoscopy was performed without difficulty. The patient tolerated the procedure well. The quality of the bowel preparation was good. The ileocecal valve, appendiceal orifice, and rectum were photographed. Findings: Six sessile polyps were found in the transverse colon and in the ascending colon. The polyps were 5 to 10 mm in size. These polyps were removed with a hot snare. Resection and retrieval were complete. Multiple small-mouthed diverticula were found in the sigmoid colon. Non-bleeding internal hemorrhoids were found during retroflexion. The hemorrhoids were small. Impression: - Six 5 to 10 mm polyps in the transverse colon and in the ascending colon, removed with a hot snare. Resected and retrieved. - Diverticulosis in the sigmoid colon. - Non-bleeding internal hemorrhoids. Recommendation: - Resume previous diet. - Continue present medications. - Repeat colonoscopy for surveillance based on pathology results. - Return to primary care physician as previously scheduled. Anant Lomax DO 11/25/2016 11:54:56 AM This report has been signed electronically. Note Initiated On: 11/25/2016 11:27 AM I attest to the content of the Intraoperative Record and orders documented therein, exceptions below
[2016-11-25 12:13] VITALS: BP 157/87; PULSE 99; O2SAT 96
--- NOTE | 2016-11-25 13:13 | Anesthesiology Progress Note ---
Anesthesia Post Op Note Date & Time Nov 25, 2016 at 13:13 Vital Signs Pain Intensity: 0 Vital Signs Past 12 Hours Date Time Temp Pulse Resp B/P (MAP) Pulse Ox O2 Delivery O2 Flow Rate FiO2 11/25/16 12:13 99 20 157/87 (110) 96 Room Air 11/25/16 12:08 96 20 160/86 (110) 99 Room Air 11/25/16 12:01 106 20 161/87 (111) 97 Room Air 11/25/16 11:54 99 20 141/80 (100) 100 Room Air 11/25/16 10:59 36.6 118 20 157/94 (115) 97 Room Air Notes Mental Status: alert / awake / arousable, participated in evaluation Pt Amnestic to Procedure: Yes Nausea / Vomiting: adequately controlled Pain: adequately controlled Airway Patency, RR, SpO2: stable & adequate BP & HR: stable & adequate Hydration State: stable & adequate Anesthetic Complications: no major complications apparent
== END | disposition home or self-care (01) ==
LOC: C.GI 10:33
PROVIDERS: ATTEND Internal Medicine
DX: D12.2 Benign neoplasm of ascending colon (principal); D12.3 Benign neoplasm of transverse colon; K57.30 Diverticulosis of large intestine without perforation or abscess without bleeding; K64.8 Other hemorrhoids; Z79.82 Long term (current) use of aspirin; Z79.899 Other long term (current) drug therapy; R19.5 Other fecal abnormalities

== ENCOUNTER → 2016-12-01 | Day surgery (SDC) | payer OTHER, BC ==
[2016-11-18 10:10] VITALS: BMI 28.0
--- NOTE | 2016-11-18 11:19 | PAT Medication Instructions ---
Service Date Nov 18, 2016. Current Home Medication List Acetaminophen (Tylenol), 1,000 MG PO HS PRN for Pain Albuterol Hfa (Ventolin Hfa), 2-4 PUFFS INH Q6H PRN for SOB/Wheezing Amlodipine Besylate (Norvasc), 10 MG PO QAM Aspirin (Aspirin 81), 81 MG PO QPM Atorvastatin (Lipitor), 80 MG PO QPM Azelastine Hcl (Astelin Nasal Pocola), 1-2 SPRAYS NA BID Budesonide/Formoterol Fumarate (Symbicort 160/4.5 Inhaler ), 2 PUFFS INH BID Canagliflozin (Invokana), 300 MG PO DAILYBB Carvedilol (Coreg), 12.5 MG PO BID Chlorpheniramine Maleate (Chlorpheniramine Maleate), 4 MG PO DAILY PRN for ALLERGY Cholecalciferol (Vitamin D), 2,000 UNITS PO BID Chromium (Chromium), 200 MCG PO QPM Coenzyme Q10 (Ubidecarenone) (Coq10), 100 MG PO QAM Cyanocobalamin (B-12), 1 TAB PO QAM Finasteride (Proscar), 5 MG PO QAM Fluocinonide (Lidex 0.05% Oint), 1 APPLN TOP DIRECTED Guaifenesin (Mucinex Maximum Strength), 1 TAB PO BID PRN for Cough Guaifenesin/Codeine (Robitussin-Ac Syrup), 5 ML PO Q6H PRN for Cough Liraglutide (Victoza), 1.8 MG SC DAILYBB Melatonin (Melatonin Maximum Strengt), 3 TABS PO HS Metformin Hcl (Glucophage), 1,000 MG PO BID Metronidazole (Topical) (Metrogel), 1 APPLN EX DIRECTED Multiple Vitamin (Multivitamin), 1 TAB PO QPM Potassium Chloride (K-Tab), 20 MEQ PO BID Valsartan (Diovan), 320 MG PO QAM Medication Instructions For Your Scheduled Surgery - Check with surgeon/laundry operator for instructions: Aspirin (Aspirin 81), 81 MG PO QPM - Hold the following medications starting 11/18/16: Coenzyme Q10 (Ubidecarenone) (Coq10), 100 MG PO QAM Chromium (Chromium), 200 MCG PO QPM - Hold the following medications 24 hours prior to surgery: Metronidazole (Topical) (Metrogel), 1 APPLN EX DIRECTED Fluocinonide (Lidex 0.05% Oint), 1 APPLN TOP DIRECTED - Hold the following medications 48 hours prior to surgery: Metformin Hcl (Glucophage), 1,000 MG PO BID - Hold the following medications the morning of surgery: Valsartan (Diovan), 320 MG PO QAM Potassium Chloride (K-Tab), 20 MEQ PO BID Guaifenesin (Mucinex Maximum Strength), 1 TAB PO BID PRN for Cough Guaifenesin/Codeine (Robitussin-Ac Syrup), 5 ML PO Q6H PRN for Cough Cyanocobalamin (B-12), 1 TAB PO QAM Finasteride (Proscar), 5 MG PO QAM Cholecalciferol (Vitamin D), 2,000 UNITS PO BID Chlorpheniramine Maleate (Chlorpheniramine Maleate), 4 MG PO DAILY PRN for ALLERGY Canagliflozin (Invokana), 300 MG PO DAILYBB Azelastine Hcl (Astelin Nasal Pocola), 1-2 SPRAYS NA BID - Take the following medications the morning of surgery with a sip of water: Liraglutide (Victoza), 1.8 MG SC DAILYBB Carvedilol (Coreg), 12.5 MG PO BID Budesonide/Formoterol Fumarate (Symbicort 160/4.5 Inhaler ), 2 PUFFS INH BID Amlodipine Besylate (Norvasc), 10 MG PO QAM Acetaminophen (Tylenol), 1,000 MG PO HS PRN for Pain (if needed) Albuterol Hfa (Ventolin Hfa), 2-4 PUFFS INH Q6H PRN for SOB/Wheezing (if needed ) - Take the following medications as scheduled the night before surgery: Multiple Vitamin (Multivitamin), 1 TAB PO QPM Potassium Chloride (K-Tab), 20 MEQ PO BID Melatonin (Melatonin Maximum Strengt), 3 TABS PO HS Guaifenesin (Mucinex Maximum Strength), 1 TAB PO BID PRN for Cough (if needed) Guaifenesin/Codeine (Robitussin-Ac Syrup), 5 ML PO Q6H PRN for Cough (if needed ) Cholecalciferol (Vitamin D), 2,000 UNITS PO BID Chlorpheniramine Maleate (Chlorpheniramine Maleate), 4 MG PO DAILY PRN for ALLERGY (if needed) Carvedilol (Coreg), 12.5 MG PO BID Budesonide/Formoterol Fumarate (Symbicort 160/4.5 Inhaler ), 2 PUFFS INH BID Azelastine Hcl (Astelin Nasal Pocola), 1-2 SPRAYS NA BID Atorvastatin (Lipitor), 80 MG PO QPM Acetaminophen (Tylenol), 1,000 MG PO HS PRN for Pain (if needed) Albuterol Hfa (Ventolin Hfa), 2-4 PUFFS INH Q6H PRN for SOB/Wheezing (if needed ) If you have any questions please call us at [phone] or [phone] or [phone]
[~2016-12-01] VITALS: Ht 182.9 cm; Wt 95.1 kg
[~2016-12-01] MED LIST changes: -ASTN; +ATROPINE SULFATE 0.1 MG/ML 5ML SYR IV PRN; +BUPIVACAINE/EPINEPHRINE 0.5% MPF 1:200,000 10 ML VIAL ONE; +CEFAZOLIN 2000 MG/60 ML D5W IV SCH; -CHLO4TAB70 PO; +DEXAMETHASONE SOD INJ 4 MG/ML VIAL ONE; +ESMOLOL HCL 10 MG/ML 10 ML VIAL ONE; +ETOMIDATE 2 MG/ML 20 ML VIAL IV ONE; +EpHEDrine SULFATE INJ 50 MG/ML AMP IV PRN; +FENTANYL CITRATE INJ 50 MCG/1 ML 2 ML VIAL IV PRN; +FENTANYL CITRATE INJ 50 MCG/1 ML 2 ML VIAL ONE; -GUAI1TAB69 PO; -GUAISYP4 PO; +HYDROCODONE/ACETAMOPHEN 5/325MG TAB ONE; +HYDROCODONE/ACETAMOPHEN 5/325MG TAB PO PRN; +LABETALOL HCL IV 5 MG/ML 20ML IV PRN; +LACTATED RINGER'S 1000ML 1,000 ML IV SCH; -LDXO60 TOP; -METR0.7527 EX; +NALOXONE HCL 0.4 MG/1 ML VIAL/CARP IV PRN; +ONDANSETRON INJ 2 MG/ML 2 ML VIAL IV PRN; +ONDANSETRON INJ 2 MG/ML 2 ML VIAL ONE; +SODIUM CHLORIDE 0.9% 1000ML 1,000 ML IV SCH; -SODIUM CHLORIDE 0.9% 500ML 500 ML IV ONE
[2016-12-01 08:02] VITALS: BP 173/90; PULSE 72; TEMP 36.6; O2SAT 97; Ht 182.9 cm; Wt 95.1 kg
--- NOTE | 2016-12-01 09:48 | History & Physical Bridge Note ---
H&P Re-Evaluation Bridge Note: I have examined the patient, reviewed the History & Physical and in the interval since the performance of the History & Physical I have noted the following changes of clinical significance: No changes noted
--- NOTE | 2016-12-01 11:50 | Discharge Instructions ---
Discharge Instructions Date of Service Dec 01, 2016. Admission Reason for Admission: Right Inguinal Hernia, Diabetes Discharge Discharge Diagnosis / Problem: Right Inguinal Hernia, Diabetes Discharge Goals Goal(s): Decrease discomfort, Improve function Activity Recommendations Activity Limitations: as noted below Lifting Limitations: no more than 10 pounds Exercise/Sports Limitations: until after follow-up appointment May Resume Sexual Activity: after follow-up appointment Shower/Bathe: tomorrow Driving or Machine Use: resume 1 day after discharge . Instructions / Follow-Up Instructions / Follow-Up Please follow-up with Dr. Redd in the office in 1-2 weeks. Please call the office at [phone] to make an appointment if you do not have already. Please call the office with any questions or concerns. Current Hospital Diet Patient's current hospital diet: Discharge Diet Recommended Diet: Regular Diet Procedures Procedures Performed: Right Inguinal Hernia Repair with Mesh, Excision of Cord Lypoma Pending Studies Studies pending at discharge: yes List of pending studies: Pathology report. Laboratory Results Hemoglobin A1c Test 10/03/16 08:53 Range/Units Estimated Average Glucose 151 mg/dl Hemoglobin A1c 6.9 H 4.5-5.6 % Lipid Panel Test 10/03/16 08:53 Range/Units Triglycerides Level 75 0-150 mg/dl Cholesterol Level 117 0-200 mg/dl HDL Cholesterol 41 mg/dl Cholesterol/HDL Ratio 2.9 LDL Cholesterol, Calculated 61 mg/dl Medical Emergencies . Who to Call and When: Medical Emergencies: If at any time you feel your situation is an emergency, please call 911 immediately. . Non-Emergent Contact Non-Emergency issues call your: Primary Care Provider, Surgeon Call Non-Emergent contact if: temperature is above 101.5, your pain is not controlled, wound has increased drainage, wound has increased redness . "Provider Documentation" section prepared by Melita Garcia. . VTE Core Measure Inpt VTE Proph given/why not?: SCD's [place] Drug Monitoring Program Search Results: patient reviewed within database, no issues identified
--- NOTE | 2016-12-01 12:14 | [facility] Operative Report ---
Operative Report Operative Date Dec 01, 2016. Pre-Operative Diagnosis Right Inguinal Hernia Post-Operative Diagnosis Right Inguinal Hernia;cord lipoma Procedure(s) Performed Right Inguinal Hernia Repair with Mesh, Excision of Cord Lipoma Surgeon Dr. Redd Registered Phlebotomist Part Time Surgeon(s) MAIKEL Tan Estimated Blood Loss 15ml Findings large indirect inguinal hernia;large cord lipoma Specimens A. Hernia Sac (Right Inguinal) Anesthesia LMA Complication(s) None Disposition Recovery Room / PACU Description of Procedure After informed consent was obtained the patient was taken to the operating room and placed in supine position. After successful placement of a laryngeal mask airway the right groin area was shaved and sterilely prepped and draped in usual fashion. An inguinal incision was made with a 15 blade scalpel and carried down through the soft tissue using electrocautery. The external obliques aponeurosis was skeletonized and incised with a fresh blade. Metzenbaum scissors were used to extend this through the external ring as well as for several centimeters proximally. Once in the inguinal canal we were able to gently tease the cord and cord structures off the pubic bone. I placed a Cheri drain around it. It was no evidence of a direct hernia. As we inspected the cord and cord contents we noticed extremely large cord lipoma. We able used traction countertraction small amounts of electrocautery to dissect this free back to its neck. I clamped it off and divided with electrocautery and tied off using 2-0 Vicryl and dunked the stalk back into the abdomen. It was too large to put back into the abdomen without excising it. We then found the hernia sac. Again we used traction countertraction small amounts electrocautery to tease the cord back to its base. Again because of the size and chronic nature of the sac I clamped it at its neck divided it and tied it off with 2-0 Vicryl as well. We then dunked this back in the abdominal cavity. This left only cord and cord structures. We did irrigate the wound and then used a piece of polypropylene mesh as an onlay. It was secured to Krishna's ligament distally the shelving portion of Poupart ligament laterally and the midline musculature medially. The "arms" of the mesh were wrapped around behind the cord and cord structures and secured underlying muscle. We used 0 Ethibond for all the suturing. At the end of the procedure there was adequate hemostasis. The mesh laid tension free. We injected some marcaine around the mesh for post op analgesia. We irrigated the wound a final time and there was adequate hemostasis. We then closed the external oblique aponeurosis with 2-0 Vicryl in a running fashion. Soft tissue was irrigated and closed using 3-0 Vicryl and 4-0 Monocryl for skin. Some additional Marcaine was injected around the skin for postoperative analgesia and skin glue used as a dressing. The patient was awaken x-rayed and transferred recovery in stable condition I attest to the content of the Intraoperative Record and any orders documented therein. Any exceptions are noted below.
--- NOTE | 2016-12-01 12:29 | Anesthesiology Progress Note ---
Anesthesia Post Op Note Date & Time Dec 01, 2016 at 12:29 Vital Signs Pain Intensity: 0 Vital Signs Past 12 Hours Date Time Temp Pulse Resp B/P (MAP) Pulse Ox O2 Delivery O2 Flow Rate FiO2 12/01/16 12:25 36.3 70 18 163/82 98 Nasal Cannula 2 12/01/16 12:15 73 18 168/86 98 Nasal Cannula 3 12/01/16 12:05 65 16 173/88 98 Oxymask 5 12/01/16 11:55 65 16 170/94 99 Oxymask 5 12/01/16 11:48 36.9 64 15 167/85 100 Oxymask 10 12/01/16 08:02 36.6 72 18 173/90 (117) 97 Room Air Notes Mental Status: alert / awake / arousable, participated in evaluation Pt Amnestic to Procedure: Yes Nausea / Vomiting: adequately controlled Pain: adequately controlled Airway Patency, RR, SpO2: stable & adequate BP & HR: stable & adequate Hydration State: stable & adequate Anesthetic Complications: no major complications apparent
[2016-12-01 12:30] VITALS: BP 166/84; PULSE 75; TEMP 36.6; O2SAT 96
[2016-12-01 13:00] VITALS: BP 166/88; PULSE 78; O2SAT 96
[2016-12-01 13:30] VITALS: BP 162/94; PULSE 80; TEMP 37; O2SAT 95
== END | disposition home or self-care (01) ==
LOC: C.ACU 07:38
PROVIDERS: ATTEND Surgery
DX: K40.90 Unilateral inguinal hernia, without obstruction or gangrene, not specified as recurrent (principal); D17.6 Benign lipomatous neoplasm of spermatic cord; I25.10 Atherosclerotic heart disease of native coronary artery without angina pectoris; I35.0 Nonrheumatic aortic (valve) stenosis; I45.10 Unspecified right bundle-branch block; I10 Essential (primary) hypertension; E78.5 Hyperlipidemia, unspecified; E11.42 Type 2 diabetes mellitus with diabetic polyneuropathy; J44.9 Chronic obstructive pulmonary disease, unspecified; Z87.891 Personal history of nicotine dependence; Z79.82 Long term (current) use of aspirin; Z79.84 Long term (current) use of oral hypoglycemic drugs; Z79.899 Other long term (current) drug therapy

== ENCOUNTER 2016-12-07 19:15 | Emergency (ER) | payer OTHER, BC ==
[~2016-12-07] VITALS: Ht 182.9 cm; Wt 92.9 kg
[~2016-12-07 19:15] MED LIST changes: -ATROPINE SULFATE 0.1 MG/ML 5ML SYR IV PRN; -BUPIVACAINE/EPINEPHRINE 0.5% MPF 1:200,000 10 ML VIAL ONE; -CEFAZOLIN 2000 MG/60 ML D5W IV SCH; -DEXAMETHASONE SOD INJ 4 MG/ML VIAL ONE; -ESMOLOL HCL 10 MG/ML 10 ML VIAL ONE; -ETOMIDATE 2 MG/ML 20 ML VIAL IV ONE; -EpHEDrine SULFATE INJ 50 MG/ML AMP IV PRN; -FENTANYL CITRATE INJ 50 MCG/1 ML 2 ML VIAL IV PRN; -FENTANYL CITRATE INJ 50 MCG/1 ML 2 ML VIAL ONE; -HYDR-5688 PO; -HYDROCODONE/ACETAMOPHEN 5/325MG TAB ONE; -HYDROCODONE/ACETAMOPHEN 5/325MG TAB PO PRN; -LABETALOL HCL IV 5 MG/ML 20ML IV PRN; -LACTATED RINGER'S 1000ML 1,000 ML IV SCH; -LIDOCAINE HCL 2% 2 ML VIAL (20MG/ML) ONE; -NALOXONE HCL 0.4 MG/1 ML VIAL/CARP IV PRN; -ONDANSETRON INJ 2 MG/ML 2 ML VIAL IV PRN; -ONDANSETRON INJ 2 MG/ML 2 ML VIAL ONE; -PROPOFOL IV EMULSION 10 MG/ML 20 ML VIAL IV ONE; -SODIUM CHLORIDE 0.9% 1000ML 1,000 ML IV SCH
[2016-12-07 19:23] VITALS: TEMP 36.7; Ht 182.9 cm; Wt 92.9 kg
--- NOTE | 2016-12-07 20:03 | EMERGENCY ROOM VISIT NOTE ---
ED Visit Note First contact with patient: 19:37 I have seen and examined this patient with Susana Krishna and generally agree with the treatment plan as discussed. Problem List Medical Problems: (1) Diabetes mellitus Status: Chronic (2) Emphysema/COPD Status: Chronic (3) Heart disease Status: Chronic (4) HTN (hypertension) Status: Chronic Current/Historical Medications Scheduled Amlodipine Besylate (Norvasc), 10 MG PO QAM Aspirin (Aspirin 81), 81 MG PO QPM Atorvastatin (Lipitor), 80 MG PO QPM Budesonide/Formoterol Fumarate (Symbicort 160/4.5 Inhaler ), 2 PUFFS INH BID Canagliflozin (Invokana), 300 MG PO DAILYBB Carvedilol (Coreg), 12.5 MG PO BID Cholecalciferol (Vitamin D), 2,000 UNITS PO BID Chromium (Chromium), 200 MCG PO QPM Coenzyme Q10 (Ubidecarenone) (Coq10), 100 MG PO QAM Cyanocobalamin (B-12), 1 TAB PO QAM Finasteride (Proscar), 5 MG PO QAM Liraglutide (Victoza), 1.8 MG SC DAILYBB Melatonin (Melatonin Maximum Strengt), 3 TABS PO HS Metformin Hcl (Glucophage), 1,000 MG PO BID Multiple Vitamin (Multivitamin), 1 TAB PO QPM Potassium Chloride (K-Tab), 20 MEQ PO BID Valsartan (Diovan), 320 MG PO QAM Scheduled PRN Acetaminophen (Tylenol), 1,000 MG PO HS PRN for Pain Albuterol Hfa (Ventolin Hfa), 2-4 PUFFS INH Q6H PRN for SOB/Wheezing Allergies Coded Allergies: Adhesives (Verified Allergy, Unknown, REDNESS, 11/25/16) NO KNOWN DRUG ALLERGIES (Verified Allergy, Unknown, ., 11/25/16) Vital Signs Date Time Temp Pulse Resp B/P (MAP) Pulse Ox O2 Delivery O2 Flow Rate FiO2 12/07/16 20:13 75 18 137/81 96 Room Air 12/07/16 19:23 36.7 87 18 130/77 96 Room Air Departure Information Referrals Ricardo Calderon M.D. (PCP) Patient Instructions [facility]
--- NOTE | 2016-12-07 20:08 | EMERGENCY ROOM VISIT NOTE ---
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 The patient had a hernia repair 6 days ago and had an IV in the left wrist. He has had bruising in the wrist since then. He is concerned because the bruising has been increasing in size slightly. He denies any pain. The patient takes a baby aspirin every day. He denies any other anticoagulant use. Review of Systems A complete 10 point review of systems was reviewed with the patient with pertinent positives and negatives as per history of present illness. All else were negative. Past Medical/Surgical History Medical Problems: (1) Diabetes mellitus (2) Emphysema/COPD (3) Heart disease (4) HTN (hypertension) Family History Cancer Diabetes mellitus FH: heart disease FHx: lung disease Hypertension Social History Smoking Status: Never Smoker Alcohol Use: occasionally Drug Use: none Marital Status: Housing Status: lives with significant other Occupation Status: retired Current/Historical Medications Scheduled Amlodipine Besylate (Norvasc), 10 MG PO QAM Aspirin (Aspirin 81), 81 MG PO QPM Atorvastatin (Lipitor), 80 MG PO QPM Budesonide/Formoterol Fumarate (Symbicort 160/4.5 Inhaler ), 2 PUFFS INH BID Canagliflozin (Invokana), 300 MG PO DAILYBB Carvedilol (Coreg), 12.5 MG PO BID Cholecalciferol (Vitamin D), 2,000 UNITS PO BID Chromium (Chromium), 200 MCG PO QPM Coenzyme Q10 (Ubidecarenone) (Coq10), 100 MG PO QAM Cyanocobalamin (B-12), 1 TAB PO QAM Finasteride (Proscar), 5 MG PO QAM Liraglutide (Victoza), 1.8 MG SC DAILYBB Melatonin (Melatonin Maximum Strengt), 3 TABS PO HS Metformin Hcl (Glucophage), 1,000 MG PO BID Multiple Vitamin (Multivitamin), 1 TAB PO QPM Potassium Chloride (K-Tab), 20 MEQ PO BID Valsartan (Diovan), 320 MG PO QAM Scheduled PRN Acetaminophen (Tylenol), 1,000 MG PO HS PRN for Pain Albuterol Hfa (Ventolin Hfa), 2-4 PUFFS INH Q6H PRN for SOB/Wheezing Physical Exam Vital Signs Date Time Temp Pulse Resp B/P (MAP) Pulse Ox O2 Delivery O2 Flow Rate FiO2 12/07/16 20:13 75 18 137/81 96 Room Air 12/07/16 19:23 36.7 87 18 130/77 96 Room Air Physical Exam VITALS: Vitals are noted on the nurse's note and reviewed by myself. Vital signs stable. GENERAL: This is an 81-year-old male, in no acute distress, nondiaphoretic, well -developed well-nourished. SKIN: There is ecchymosis over the ventral aspect of the left wrist with minimal swelling. There is no erythema or warmth to touch. There is no tenderness to palpation. MUSCULOSKELETAL: Full range of motion of the left wrist and hand. NEURO: Patient was alert and oriented to person place and time. Medical Decision & Procedures Medical Decision Differential diagnosis includes hematoma, superficial thrombophlebitis, cellulitis, DVT, among others. The patient was evaluated as above. He has a moderate amount of ecchymosis over the wrist where his IV was in place. He has no pain. There is no redness or warmth to suggest infection. Patient appears to have a small hematoma which is likely caused by his use of baby aspirin. He was encouraged to use warm compresses over the area to help with swelling. He will see his primary care provider in 2 days for a recheck. I am not highly suspicious of DVT. He was encouraged to return here for any worsening symptoms. He verbalized understanding of my assessment and treatment plan and was discharged home in good condition. The patient was independently evaluated by Dr. Cruz, ED attending physician , who agreed with my assessment and treatment plan. Medication Reconcilliation Current Medication List: was personally reviewed by me Blood Pressure Screening Patient's blood pressure: Normal blood pressure Impression Primary Impression: Hematoma of IV site Departure Information Dispostion Home / Self-Care Condition GOOD Referrals Ricardo Calderon M.D. (PCP) Patient Instructions My [facility] [employer] Additional Instructions Apply warm compresses to the wrist to reduce swelling and bruising. Follow up with your primary care provider in 2 days for a recheck. Return to the emergency department for worsening pain, worsening swelling, or any other new/concerning symptoms. Problem Qualifiers Primary Impression: Hematoma of IV site Encounter type: initial encounter Qualified Codes: T82.898A - Other specified complication of vascular prosthetic devices, implants and grafts, initial encounter
[2016-12-07 20:13] VITALS: BP 137/81; PULSE 75; O2SAT 96
== END 2016-12-07 20:13 | disposition home or self-care (01) ==
LOC: C.EDB 19:20 → C.EDD 20:13
DX: T82.898A Other specified complication of vascular prosthetic devices, implants and grafts, initial encounter (principal); X58.XXXA Exposure to other specified factors, initial encounter; E11.9 Type 2 diabetes mellitus without complications; J44.9 Chronic obstructive pulmonary disease, unspecified; I51.9 Heart disease, unspecified; I10 Essential (primary) hypertension; Z83.3 Family history of diabetes mellitus; Z82.49 Family history of ischemic heart disease and other diseases of the circulatory system; Z79.82 Long term (current) use of aspirin

== ENCOUNTER → 2017-02-06 | Outpatient (CLI) | payer OTHER, BC ==
--- NOTE | 2017-02-06 07:57 | DIAGNOSTIC IMAGING REPORT ---
(CHEST) THORAX WITHOUT CLINICAL HISTORY: Pulmonary nodule COMPARISON STUDY: 07/22/2016 , 06/24/2015 CT DOSE: 407.93 mGy.cm TECHNIQUE: CT of the thorax was performed from the thoracic inlet to the lung bases. Images are reviewed in the axial, sagittal, and coronal planes. IV contrast was not administered for this examination. A dose lowering technique was utilized adhering to the principles of ALARA. FINDINGS: Thyroid: There is a multinodular thyroid gland, similar to the preceding study. Thoracic aorta: The thoracic aorta is normal in course and caliber, noting standard 3 vessel arch anatomy. Heart: There are coronary artery calcifications. There is mild dilatation of the pulmonary artery trunk. Lungs and pleural spaces: There are no pleural effusions. There is no focal pulmonary consolidation. Scattered bilateral pulmonary nodules persist. The largest is located within the left lower lobe on image #[id number]. This continues to measure 6 mm in diameter. Mediastinum: There is no mediastinal lymphadenopathy. Mary Jane: There is no evidence of pathologic hilar adenopathy given the limitations of a noncontrast study Axilla: Clear. Upper abdomen: There is a partially visualized upper pole left renal cyst. Skeletal structures: There are no lytic or blastic osseous lesions. There is ankylosis of the dorsal spine. IMPRESSION: 1. Scattered bilateral pulmonary nodules, the largest of which measures 6 mm. These are not changed significantly when compared the prior June 2016 study, or May 2015 study. 2. No evidence of pathologic adenopathy 3. Cardiomegaly with pulmonary artery enlargement Electronically signed by: Cory Tanner M.D. 02/06/2017 7:56 AM Dictated Date/Time: 02/06/2017 7:47 AM
== END | disposition home or self-care (01) ==
LOC: C.CTS 07:28
PROVIDERS: ATTEND Family Medicine
DX: R91.8 Other nonspecific abnormal finding of lung field (principal); I51.7 Cardiomegaly

== ENCOUNTER → 2017-05-23 | Outpatient (CLI) | payer OTHER, BC ==
[2017-05-23 12:17] LABS: BASO % 0.4 %; BASO ABS # 0.03 K/uL (0-0.2); EOS % 1.5 %; EOS ABS # 0.13 K/uL (0-0.5); HEMATOCRIT 47.4 % (42-52); HEMOGLOBIN 16.3 g/dL (14.0-18.0); IG# 0.01 K/uL (0.00-0.02); MEAN CELL VOLUME 89.4 fL (80-100); MEAN CORPUSCULAR HEMOGLOBIN 30.8 pg (25-34); MEAN CORPUSCULAR HGB CONC 34.4 g/dl (32-36); MEAN PLATELET VOLUME 10.9 fL (7.4-10.4); MONO % 8.5 %; MONO ABS # 0.72 K/uL (0.11-0.59); NEUT % 76.5 %; NEUT ABS # 6.45 K/uL (1.4-6.5); PLATELET COUNT 145 K/uL (130-400); RED CELL DISTRIBUTION WIDTH CV 14.1 % (11.5-14.5); WHITE BLOOD COUNT 8.44 K/uL (4.8-10.8)
[2017-05-23 12:24] LABS: ALBUMIN 3.9 gm/dl (3.4-5.0); ALT/SGPT 28 U/L (12-78); AST/SGOT 12 U/L (15-37); BLOOD UREA NITROGEN 14 mg/dl (7-18); CALCIUM 9.7 mg/dl (8.5-10.1); CARBON DIOXIDE 28 mmol/L (21-32); CHOLESTEROL 113 mg/dl (0-200); CREATININE 0.84 mg/dl (0.60-1.40); GLUCOSE 180 mg/dl (70-99); POTASSIUM 4.1 mmol/L (3.5-5.1); SODIUM 138 mmol/L (136-145)
[2017-05-23 12:33] LABS: ALKALINE PHOSPHATASE 84 U/L (45-117); LDL CHOLESTEROL CALCULATED 48 mg/dl; TOTAL PROTEIN 7.1 gm/dl (6.4-8.2); TRANSFERRIN 298 mg/dl (200-360)
[2017-05-23 13:30] LABS: HEMOGLOBIN A1C 7.3 % (4.5-5.6)
== END | disposition home or self-care (01) ==
LOC: C.LAB 10:30
PROVIDERS: ATTEND Family Medicine
DX: E88.81 Metabolic syndrome and other insulin resistance (principal); E55.9 Vitamin D deficiency, unspecified; D51.9 Vitamin B12 deficiency anemia, unspecified; E78.9 Disorder of lipoprotein metabolism, unspecified; R53.83 Other fatigue

== ENCOUNTER → 2017-10-26 | Outpatient (CLI) | payer OTHER, BC ==
[~2017-10-26] MED LIST changes: +ASTN; +FLUO0.059 TOP; +GUAISYP4 PO; -LIRA18IN SC; +LIRA18IN SQ; +MELA1TAB3 PO; -MELATAB2 PO; -METF1000 PO; +[UNRECOGNIZED DRUG - CODE] PO
[2017-10-26 10:26] LABS: ALBUMIN 3.7 gm/dl (3.4-5.0); ALKALINE PHOSPHATASE 86 U/L (45-117); ALT/SGPT 25 U/L (12-78); AST/SGOT 18 U/L (15-37); BLOOD UREA NITROGEN 12 mg/dl (7-18); CALCIUM 9.5 mg/dl (8.5-10.1); CARBON DIOXIDE 28 mmol/L (21-32); CREATININE 0.85 mg/dl (0.60-1.40); GLUCOSE 120 mg/dl (70-99); POTASSIUM 3.9 mmol/L (3.5-5.1); SODIUM 138 mmol/L (136-145); TOTAL PROTEIN 7.1 gm/dl (6.4-8.2)
[2017-10-26 10:27] LABS: HEMOGLOBIN A1C 7.3 % (4.5-5.6)
== END | disposition home or self-care (01) ==
LOC: C.LAB 09:01
PROVIDERS: ATTEND Family Medicine
DX: E11.9 Type 2 diabetes mellitus without complications (principal)

== ENCOUNTER 2017-11-14 02:53 | Inpatient (IN) | payer OTHER, BC ==
[2017-11-14] VITALS (40 sets, daily range): BP systolic 135–174; BP diastolic 68–92; PULSE 64–99; TEMP 36.3–36.8; O2SAT 91–98; Ht 182.9 cm; Wt 90.0 kg
[~2017-11-14] VITALS: Ht 182.9 cm; Wt 90.0 kg
[2017-11-14] MEDS ORDERED: CHOL2000 PO (03:16)
[2017-11-14] MEDS ORDERED: METF-384 PO (03:18)
[2017-11-14 03:19] LABS: BASO % 0.5 %; BASO ABS # 0.04 K/uL (0-0.2); EOS % 3.4 %; EOS ABS # 0.29 K/uL (0-0.5); HEMATOCRIT 43.9 % (42-52); HEMOGLOBIN 14.9 g/dL (14.0-18.0); IG# 0.02 K/uL (0.00-0.02); LYMPH % 19.6 %; LYMPH ABS # 1.65 K/uL (1.2-3.4); MEAN CELL VOLUME 89.8 fL (80-100); MEAN CORPUSCULAR HEMOGLOBIN 30.5 pg (25-34); MEAN CORPUSCULAR HGB CONC 33.9 g/dl (32-36); MEAN PLATELET VOLUME 10.5 fL (7.4-10.4); MONO % 9.6 %; MONO ABS # 0.81 K/uL (0.11-0.59); NEUT % 66.7 %; PLATELET COUNT 112 K/uL (130-400); RED CELL DISTRIBUTION WIDTH CV 13.8 % (11.5-14.5); RED CELL DISTRIBUTION WIDTH SD 45.2 fL (36.4-46.3); WHITE BLOOD COUNT 8.41 K/uL (4.8-10.8)
[2017-11-14] MEDS ORDERED: CLOP1TAB15 PO (03:21)
--- NOTE | 2017-11-14 03:21 | EMERGENCY ROOM VISIT NOTE ---
History Report prepared by Liam: Polo Mast Under the Supervision of: Dr. Elaine Rodgers D.O. First contact with patient: 02:52 Chief Complaint: CARDIAC ASSESSMENT Stated Complaint: CARDIAC SYMPTOMS History of Present Illness The patient is an 82 year old male who presents to the Emergency Room for intermittent episodes of ventricular standstill that began shortly prior to arrival. Per the patient's the patient got up to use the restroom this evening. When he got back into bed the patient started to complain of feeling "very hot" and "clammy." The also mentioned that there was "a lot of sweat. " She also noted that the patient was making "snoring" noises with his respirations. The called 911 immediately following these symptoms beginning. The patient states that he was doing very well today before the symptoms began. The patient's notes that the patient had an Aortic Valve Replacement with a Bovine valve on the 08 of November, 6 days ago. Following this procedure he did have an external pacer placed but it was not needed.. She also mentions that he has a history of a heart murmur and stent placement by Dr. Naranjo. EMS state that the episodes of asystole were noticed when they arrived on scene. EMS estimates that the episodes lasted about 10 seconds and he had more than 10 episodes with each episode, the patient lost consciousness. The patient resumed taking his Plavix on the , 5 days ago. The patient denies any chest pain. 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 A total of 10 systems reviewed and were otherwise negative. Past Medical & Surgical Medical Problems: (1) Diabetes mellitus (2) Emphysema/COPD (3) Heart block AV complete (4) Heart disease (5) HTN (hypertension) Family History Cancer Diabetes mellitus FH: heart disease FHx: lung disease Hypertension Social History Smoking Status: Never Smoker Alcohol Use: occasionally Drug Use: none Marital Status: Housing Status: lives with significant other Occupation Status: retired Current/Historical Medications Scheduled Amlodipine Besylate (Norvasc), 10 MG PO QAM Aspirin (Aspirin 81), 81 MG PO QPM Atorvastatin (Lipitor), 80 MG PO QPM Budesonide/Formoterol Fumarate (Symbicort 160/4.5 Inhaler ), 2 PUFFS INH BID Canagliflozin (Invokana), 300 MG PO DAILYBB Carvedilol (Coreg), 12.5 MG PO BID Cholecalciferol (Vitamin D3), 1 CAP PO BID Chromium (Chromium), 200 MCG PO QPM Clopidogrel (Plavix), 75 MG PO QAM Coenzyme Q10 (Ubidecarenone) (Coq10), 100 MG PO QPM Cyanocobalamin (B-12), 1 TAB PO QAM Finasteride (Proscar), 5 MG PO QAM Liraglutide (Victoza), 1.8 MG SQ DAILYBB Melatonin-Pyridoxine (Melatonin), 2 TABS PO nightly Metformin Hcl (Glucophage), 1,000 MG PO BID Metronidazole (Topical) (Metrogel), 1 APPLN TOP QPM Multiple Vitamin (Multivitamin), 1 TAB PO QPM Potassium Chloride (K-Tab), 20 MEQ PO BID Valsartan (Diovan), 320 MG PO QAM Scheduled PRN Acetaminophen (Tylenol), 1,000 MG PO HS PRN for Pain Albuterol Hfa (Ventolin Hfa), 2-4 PUFFS INH Q6H PRN for SOB/Wheezing Azelastine Hcl (Astelin Nasal [place]), 1-2 SPRAYS NA BID PRN for Nasal Congestion Chlorpheniramine Maleate (Allergy), 4 MG PO every 4 hrs PRN for allergy Fluocinonide (Fluocinonide), 1 INCH TOP for skin irritation Guaifenesin (Robitussin), 1 DOSE PO UD PRN for Cough Guaifenesin Ext Rel (Mucinex Ext Rel), 1,200 MG PO Q12 PRN for Nasal Congestion Allergies Coded Allergies: Adhesives (Verified Allergy, Unknown, REDNESS, 11/25/16) Latex1 -Allergic Contact Dermititis (Verified Allergy, Unknown, unknown, ) Physical Exam Vital Signs Date Time Temp Pulse Resp B/P (MAP) Pulse Ox O2 Delivery O2 Flow Rate FiO2 11/14/17 04:25 36.3 69 16 143/79 98 Room Air 11/14/17 04:08 71 16 143/84 (103) 95 Room Air 11/14/17 03:30 77 16 140/74 98 Nasal Cannula 4.0 11/14/17 03:20 74 16 148/79 98 Nasal Cannula 4.0 11/14/17 03:10 78 16 158/86 99 Nasal Cannula 4.0 11/14/17 03:07 69 11/14/17 03:00 99 Nasal Cannula 4.0 11/14/17 03:00 99 Nasal Cannula 4.0 11/14/17 02:59 36.5 69 22 162/84 95 Room Air 15.0 Non-Rebreather 11/14/17 02:56 68 Physical Exam HEENT: Head - normocephalic and atraumatic Pupils are equal, round, and reactive to light. Extraocular eye muscles are intact, and sclera are anicteric. Nose - moist nasal mucosa without discharge. Mouth - moist buccal mucosa. Oropharynx is nonerythematous and there is no tonsillar exudate or edema noted. Neck: Supple; no JVD, nuchal rigidity, cervical lymphadenopathy. Heart: Regular rate and rhythm. There is a normal S1 and S2 with no murmurs, clicks, or gallops appreciated. Lungs: Clear to auscultation bilaterally with no wheezes, rales, or rhonchi. Abdomen: Soft, slightly distended, with good bowel sounds. There are no palpable pulsatile masses or hepatosplenomegaly. There is no guarding, rigidity , or rebound noted. Extremities: No evidence of cyanosis, clubbing, or edema. There are easily palpable peripheral pulses. Skin: Pale and diaphoretic. Medical Decision & Procedures ER Provider Diagnostic Interpretation: Radiology results as stated below per my review: CHEST X-RAY: Atelectasis to the left lung. Patient appears to have wide mediastinum. Laboratory Results 11/14/17 02:50 Red Blood Count 4.89, Mean Corpuscular Volume 89.8, Mean Corpuscular Hemoglobin 30.5, Mean Corpuscular Hemoglobin Concent 33.9, Mean Platelet Volume 10.5, Neutrophils (%) (Auto) 66.7, Lymphocytes (%) (Auto) 19.6, Monocytes (%) (Auto) 9.6, Eosinophils (%) (Auto) 3.4, Basophils (%) (Auto) 0.5, Neutrophils # (Auto) 5.60, Lymphocytes # (Auto) 1.65, Monocytes # (Auto) 0.81, Eosinophils # (Auto) 0.29, Basophils # (Auto) 0.04 11/14/17 02:50 Test 11/14/17 02:50 White Blood Count 8.41 K/uL (4.8-10.8) Red Blood Count 4.89 M/uL (4.7-6.1) Hemoglobin 14.9 g/dL (14.0-18.0) Hematocrit 43.9 % (42-52) Mean Corpuscular Volume 89.8 fL (80-100) Mean Corpuscular Hemoglobin 30.5 pg (25-34) Mean Corpuscular Hemoglobin Concent 33.9 g/dl (32-36) Platelet Count 112 K/uL (130-400) Mean Platelet Volume 10.5 fL (7.4-10.4) Neutrophils (%) (Auto) 66.7 % Lymphocytes (%) (Auto) 19.6 % Monocytes (%) (Auto) 9.6 % Eosinophils (%) (Auto) 3.4 % Basophils (%) (Auto) 0.5 % Neutrophils # (Auto) 5.60 K/uL (1.4-6.5) Lymphocytes # (Auto) 1.65 K/uL (1.2-3.4) Monocytes # (Auto) 0.81 K/uL (0.11-0.59) Eosinophils # (Auto) 0.29 K/uL (0-0.5) Basophils # (Auto) 0.04 K/uL (0-0.2) RDW Standard Deviation 45.2 fL (36.4-46.3) RDW Coefficient of Variation 13.8 % (11.5-14.5) Immature Granulocyte % (Auto) 0.2 % Immature Granulocyte # (Auto) 0.02 K/uL (0.00-0.02) Prothrombin Time 10.3 SECONDS (9.0-12.0) Prothromb Time International Ratio 1.0 (0.9-1.1) Activated Partial Thromboplast Time 21.6 SECONDS (21.0-31.0) Partial Thromboplastin Ratio 0.8 Anion Gap 11.0 mmol/L (3-11) Est Creatinine Clear Calc Drug Dose 76.0 ml/min Estimated GFR () 91.9 Estimated GFR (Non- 79.3 BUN/Creatinine Ratio 17.0 (10-20) Calcium Level 9.5 mg/dl (8.5-10.1) Magnesium Level 1.8 mg/dl (1.8-2.4) Troponin I 0.085 ng/ml (0-0.045) Beta-Hydroxybutyric Acid 3.01 mg/dL (0.2-2.81) Thyroid Stimulating Hormone (TSH) 1.530 uIu/ml (0.300-4.500) Laboratory results per my review. Procedure Pacer pads placed. ECG Per My Interpretation Indication: other (Asystole) Rate (beats per minute): 73 Findings: 1st degree AV block, RBBB, ST depression (Inferior) Comparison ECG Date: 11/18/2016 Change: no significant change ED Course 0252: Past medical records reviewed. The patient was evaluated in room B1. A complete history and physical exam was performed. A 12-lead EKG was obtained. The pacer pads were placed on the patient's chest. The patient had 2 or 3 episodes of ventricular standstill while here in the emergency department. Essentially he had for P waves with no QRS complex and was pulseless at that time. Labs were drawn as above. A portable chest x-ray was obtained. 0301: I discussed the case with Dr. Naranjo - Cardiology. He states we should activate a Heart Alert at this time and he and his team will be in to take the patient to the Entry [facility]. Medical Decision The patient is an 82 year old male who presents to the Emergency Department via EMS for intermittent episodes of ventricular standstill. Differential diagnosis includes; complete heart block, sinus pause, tachybrady syndrome. Laboratory results were reviewed and show; no leukocytosis, stable H&H, normal TSH and renal function, Glucose is high at 314, BHA is 3.0, troponin is 0.085, normal coags. This is an 82-year-old male patient who recently an aortic valve replacement at [place] on November 08. He has been feeling well since that time. Tonight, the patient awoke to go to the bathroom and felt extremely weak and diaphoretic. He had an episode where he had snoring respirations according to the . Upon EMS arrival, the patient was having episodes of ventricular standstill that lasted between 10-12 seconds. The patient will require a pacemaker. Dr. Naranjo in the Entry [facility] team are on their way and will take him. At this time, the patient is hemodynamically stable. He is not currently having any additional episodes. Medication Reconcilliation Current Medication List: was personally reviewed by me Blood Pressure Screening Patient's blood pressure: Elevated blood pressure Referred to cardiology. Consults Time Called: [phone] Consulting Physician: Dr. Naranjo - Cardiology Returned Call: 030 I discussed the case with Dr. Jose A Liz Cardiology. He states we should activate a Heart Alert at this time and he and his team will be in to take the patient to the OR. Impression Primary Impression: Ventricular asystolia Critical Care I have personally spent greater than 30 minutes of critical care time in the direct management of this patient. This includes bedside care, interpretation of diagnostic studies, and testing, discussion with consultants, patient, and family members, and other required patient management activities. This 30 minutes is in excess of all separately billable procedures. Scribe Attestation The scribe's documentation has been prepared under my direction and personally reviewed by me in its entirety. I confirm that the note above accurately reflects all work, treatment, procedures, and medical decision making performed by me. Departure Information Dispostion Being Evaluated By Hospitalist Referrals Ricardo Calderon M.D. (PCP) Patient Instructions My [facility]
[2017-11-14] MEDS ORDERED: METR0.7527 TOP (03:24)
[2017-11-14 03:25] LABS: PTT PATIENT 21.6 SECONDS (21.0-31.0)
[2017-11-14] MEDS ORDERED: RBTUDL5 PO (03:28)
[2017-11-14] MEDS ORDERED: GUAI1TAB55 PO (03:28)
[2017-11-14] MEDS ORDERED: MIDAZOLAM HCL 1 MG/ML 2ML VIAL ONE (03:37)
[2017-11-14] MEDS ORDERED: HEPARIN SOD (PORCINE) 1000 UNIT/ML 10 ML VIAL ONE (03:37)
[2017-11-14] MEDS ORDERED: FENTANYL CITRATE INJ 50 MCG/1 ML 2 ML VIAL ONE ×3 (03:37→14:31)
[2017-11-14] MEDS ORDERED: NiCARDipine HCL INJ 2.5 MG/ML 10 ML AMP ONE (03:38)
[2017-11-14] MEDS ORDERED: NITROGLYCERIN/D5W 100MCG/ML 20ML SYR ONE (03:38)
[2017-11-14 03:50] LABS: CALCIUM 9.5 mg/dl (8.5-10.1); CREATININE 0.9 mg/dl (0.60-1.40); POTASSIUM 3.4 mmol/L (3.5-5.1)
--- NOTE | 2017-11-14 03:53 | Pre Sedation Assessment ---
Pre Sedation Assessment General Date of Sedation: Nov 14, 2017. Vital Signs Past 12 Hours Date Time Temp Pulse Resp B/P (MAP) Pulse Ox O2 Delivery O2 Flow Rate FiO2 11/14/17 03:30 77 16 140/74 98 Nasal Cannula 4.0 11/14/17 03:20 74 16 148/79 98 Nasal Cannula 4.0 11/14/17 03:10 78 16 158/86 99 Nasal Cannula 4.0 11/14/17 03:07 69 11/14/17 03:00 99 Nasal Cannula 4.0 11/14/17 03:00 99 Nasal Cannula 4.0 11/14/17 02:59 36.5 69 22 162/84 95 Room Air 15.0 Non-Rebreather 11/14/17 02:56 68 Review Cardiovascular: regular rate, rhythm, no edema Lungs: chest non-tender, lungs clear Pre-Sedation Airway Assessment Smoking Status: Never Smoker Hx of Sleep Apnea: No Hx of difficult intubation: No Short Thick Neck: No Thyro-mental Distance: > 3 Finger Breadths Oral Cavity: WNL Mallampati Classification: Class II Procedure Planning Contraindications for Sedation: None Current Medications Reviewed: Yes Notes The planned sedation has been discussed with the patient. Informed Consent was obtained. I have identified the patient, determined the appropriateness of sedation and have assessed the patient immediately prior to the procedure. All medicine(s) and interventions are by my order.
--- NOTE | 2017-11-14 04:15 | Post Sedation Assessment ---
Post Sedation Assessment General Date of Sedation Nov 14, 2017. Vital Signs: Vital Signs Past 12 Hours Date Time Temp Pulse Resp B/P (MAP) Pulse Ox O2 Delivery O2 Flow Rate FiO2 11/14/17 03:30 77 16 140/74 98 Nasal Cannula 4.0 11/14/17 03:20 74 16 148/79 98 Nasal Cannula 4.0 11/14/17 03:10 78 16 158/86 99 Nasal Cannula 4.0 11/14/17 03:07 69 11/14/17 03:00 99 Nasal Cannula 4.0 11/14/17 03:00 99 Nasal Cannula 4.0 11/14/17 02:59 36.5 69 22 162/84 95 Room Air 15.0 Non-Rebreather 11/14/17 02:56 68 Post Procedure Recovery Score Activity: (2) Moves 4 extremities * Respiration: (2) Deep breath/cough Circulation: (2) +/-20% PreAnes Value Consciousness: (2) Fully Awake Oxygen Saturation: (2) > 92% On Room Air Discharge Sedation Level of Care: Phase I Post Sedation Plan On clinical assessment, the patient appears to have tolerated the sedation without complications. Patient is recovering as anticipated. Patient will continue to be monitored by nursing and may be discharged when sedation discharge criteria are met per below protocol. Upon Completions of procedure and additional 15 minutes continue every 5 minute vital signs and the P.A.R. score; then discharge to a Phase I or Fast Track to Phase II per the following guidelines: * Discharge Patient to appropriate Phase II area if PAR is 8 or greater or return to pre- procedure baseline. The post - procedure orders will be as directed. * If PAR score is less than 8 or not return to pre-procedure baseline then patient will follow Phase I monitoring till PAR is reached for Phase II. The Phase I may be done in procedure room or may call to secure a Phase I area. * If naloxone or flumazenil are used for reversal, hold in Phase I for an additional 60 -120 minutes before discharge to Phase II. Please call the Sedation Physician to re-evaluate and complete post-note for discharge to Phase II area. Do NOT discharge from procedure sedation or Phase 1 until post- sedation evaluation note is complete by procedure /sedation MD Sedation Discharge Instructions to be given to the patient at discharge to home.
--- NOTE | 2017-11-14 04:17 | CARDIOLOGY CONSULTATION ---
DATE OF CONSULTATION: 11/14/2017 CONSULTATION REQUESTED BY: Elaine Rodgers DO REASON FOR CONSULTATION: Complete heart block. HISTORY OF PRESENT ILLNESS: Mr. Alvarado is a very pleasant 82-year-old man well known to me from the outpatient setting, who presented this evening with acute episode of diaphoresis, presyncope, and disorientation. The patient's cardiac history is remarkable for severe aortic stenosis, post transcatheter aortic valve replacement at [facility] 5 days ago. The procedure was complicated by transient complete heart block after valve but had resolution prior to discharge. The patient had been feeling well up until tonight, went got up to go to the bathroom and all of a sudden became diaphoretic and confused and feeling he was going to pass out. EMS was contacted and EKG from the field shows more than 6 seconds of complete heart block. Upon arrival to the ED, had continued episodes lasting seconds and cardiology consulted for temporary pacemaker placement. At present, the patient is in normal sinus rhythm and feeling at baseline. PAST MEDICAL HISTORY: 1. Severe aortic stenosis, status post transcatheter aortic valve replacement 11/08/2017 with a ALLAN 3 26 mm valve via transfemoral approach. 2. Coronary artery disease post PCI of RCA with 3.5 x 22 mm Resolute drug-eluting stent in October 2015. FAMILY HISTORY: Noncontributory. SOCIAL HISTORY: Lives with his , nonsmoker. Denies heavy alcohol use. Retired. ALLERGIES: No known allergies. HOME MEDICATIONS: Include albuterol, amlodipine, aspirin, atorvastatin, budesonide, Invokana, carvedilol, chlorpheniramine, cholecalciferol, chromium, clopidogrel, B12, finasteride, fluocinonide, guaifenesin, Victoza, metformin, metronidazole, multivitamin, potassium, and valsartan. REVIEW OF SYSTEMS: Not completed in the emergency situation. PHYSICAL EXAMINATION: VITAL SIGNS: Temperature 36.5, pulse 77, blood pressure 140/74, satting 98% on 4 L. GENERAL: Patient appears comfortable, in no acute distress. HEENT: Clear. Sclerae anicteric. Oropharynx is clear. LUNGS: Clear to auscultation bilaterally. HEART: [place] bioprosthetic closure sound with a regular rate and rhythm. ABDOMEN: Soft, nontender. EXTREMITIES: Warm with no significant lower extremity edema. Intact distal pulses. Right common femoral artery access site well healed. NEUROLOGIC: Nonfocal. LABORATORY DATA: Chest x-ray reviewed, no acute cardiopulmonary process. Hemoglobin 14.9, platelets 112. Coags within normal limits. IMPRESSION AND PLAN: 1. Complete heart block, post transcatheter aortic valve. 2. Severe stenosis, post aortic valve replacement. 3. Coronary artery disease post percutaneous coronary intervention with drug-eluting stent in October 2015. 4. Diabetes. Mr. Alvarado is here with prolonged episodes of symptomatic complete heart block following transcatheter aortic valve replacement. Due to recurrent symptoms, we will plan to place a transcutaneous temporary pacemaker via right jugular vein tonight. We will have patient evaluated for permanent pacemaker placement tomorrow with electrophysiology. Risks, benefits, and alternatives of the procedure were discussed with the patient. He is willing to proceed. Thank you for consultation. SARAHI
--- NOTE | 2017-11-14 04:24 | Cardiac Catheterization ---
Procedure Note Procedure Date Nov 14, 2017. Pre-Procedure Diagnosis Cardiothoracic Symptom AUC Score 7 Post-Procedure Diagnosis Cardiothoracic Finding (Complete heart block) Procedure(s) Performed Temporary Pacemaker Vegetable Washer Jose A Order Builder Loader(s) Glunt Estimated Blood Loss <5 Medication(s) Lidocaine 1% Summary of Findings Temporary pacemaker insertion Patient with symptomatic complete heart block following TAVR 5 days ago. -- Standard sterile prep and drape. -- Local anesthesia with lidocaine -- Ultrasound guided access of right internal jugular with 6Fr sheath -- Temporary pacing wire navigated to RV under fluoroscopic guidance. -- Adequate pacing at <1 mA -- Final pacing settings at 60 bpm, 10 mA SUMMARY: 1. Successful transvenous temporary pacemaker placement. Hemodynamics Rest Ao: -- Final Ao: -- LV: -- RA: -- Recommendations management recommendations (Permanent pacemaker) Specimens None Radiation Exposure (mGy) 0.9 Contrast (mls) none Fluids (cc crystalloids) 33 Drains none Anesthesia local Procedural Complication(s) None Disposition ICU ACC Data Cardiac Status Clinical evaluation leading to the procedure CAD Presntation: No Sxs, no angina Intraprocedure Events Significant Dissection: No Perforation: No
--- NOTE | 2017-11-14 04:30 | History and Physical ---
History & Physical Date & Time of Service: Nov 14, 2017 at 04:29 Chief Complaint: Cardiac Symptoms Primary Care Physician: Ricardo Calderon M.D. History of Present Illness Source: patient, family, hospital records The patient is an 82-year-old male who underwent a TAVR bovine heart valve for severe aortic stenosis on 11/08/17 at [facility]. During the procedure, he was noted to have developed a complete heart block, which did resolve without intervention and he was discharged to home. The patient's reports that he became hot and clammy after returning from going to the restroom his evening, and she called 911. EMS reportedly noted episodes of asystole when they arrived on scene, of duration about 10 seconds, and had at least 10 episodes there, and then lost consciousness. In the emergency department, the patient was found to be having episodes of complete heart block , Dr. Naranjo from [facility] was called, and he recommended a heart alert be called. The patient was then taken to the Sales Development [facility]ant for placement of a temporary transvenous pacer, and then admitted to the ICU post procedure. Past Medical/Surgical History Medical Problems: (1) Diabetes mellitus (2) Emphysema/COPD (3) Fall (4) Fracture of one rib, right side, initial encounter for closed fracture (5) Heart block AV complete (6) Heart disease (7) Hematoma of IV site (8) HTN (hypertension) (9) Rib fracture (10) Right hip pain (11) Traumatic hematoma of left elbow Family History Cancer Diabetes mellitus FH: heart disease FHx: lung disease Hypertension Social History Smoking Status: Never Smoker Smokeless Tobacco Use: No Alcohol Use: none Drug Use: none Marital Status: Housing status: lives with family Occupational Status: retired Immunizations History of Influenza Vaccine: Unknown History of Tetanus Vaccine?: Unknown History of Pneumococcal: Unknown History of Hepatitis B Vaccine: Unknown Allergies Coded Allergies: Adhesives (Verified Allergy, Unknown, REDNESS, 11/25/16) Latex1 -Allergic Contact Dermititis (Verified Allergy, Unknown, unknown, ) Home Medications Scheduled Amlodipine Besylate (Norvasc), 10 MG PO QAM Aspirin (Aspirin 81), 81 MG PO QPM Atorvastatin (Lipitor), 80 MG PO QPM Budesonide/Formoterol Fumarate (Symbicort 160/4.5 Inhaler ), 2 PUFFS INH BID Canagliflozin (Invokana), 300 MG PO DAILYBB Carvedilol (Coreg), 12.5 MG PO BID Cholecalciferol (Vitamin D3), 1 CAP PO BID Chromium (Chromium), 200 MCG PO QPM Clopidogrel (Plavix), 75 MG PO QAM Coenzyme Q10 (Ubidecarenone) (Coq10), 100 MG PO QPM Cyanocobalamin (B-12), 1 TAB PO QAM Finasteride (Proscar), 5 MG PO QAM Liraglutide (Victoza), 1.8 MG SQ DAILYBB Melatonin-Pyridoxine (Melatonin), 2 TABS PO nightly Metformin Hcl (Glucophage), 1,000 MG PO BID Metronidazole (Topical) (Metrogel), 1 APPLN TOP QPM Multiple Vitamin (Multivitamin), 1 TAB PO QPM Potassium Chloride (K-Tab), 20 MEQ PO BID Valsartan (Diovan), 320 MG PO QAM Scheduled PRN Acetaminophen (Tylenol), 1,000 MG PO HS PRN for Pain Albuterol Hfa (Ventolin Hfa), 2-4 PUFFS INH Q6H PRN for SOB/Wheezing Azelastine Hcl (Astelin Nasal [place]), 1-2 SPRAYS NA BID PRN for Nasal Congestion Chlorpheniramine Maleate (Allergy), 4 MG PO every 4 hrs PRN for allergy Fluocinonide (Fluocinonide), 1 INCH TOP for skin irritation Guaifenesin (Robitussin), 1 DOSE PO UD PRN for Cough Guaifenesin Ext Rel (Mucinex Ext Rel), 1,200 MG PO Q12 PRN for Nasal Congestion Review of Systems The patient was not able to contribute his review of systems preprocedure due to altered consciousness, and was provided by EMS and as noted above. Physical Exam Vital Signs Date Time Temp Pulse Resp B/P (MAP) Pulse Ox O2 Delivery O2 Flow Rate FiO2 11/14/17 04:08 71 16 143/84 (103) 95 Room Air 11/14/17 03:30 77 16 140/74 98 Nasal Cannula 4.0 11/14/17 03:20 74 16 148/79 98 Nasal Cannula 4.0 11/14/17 03:10 78 16 158/86 99 Nasal Cannula 4.0 11/14/17 03:07 69 11/14/17 03:00 99 Nasal Cannula 4.0 11/14/17 03:00 99 Nasal Cannula 4.0 11/14/17 02:59 36.5 69 22 162/84 95 Room Air 15.0 Non-Rebreather 11/14/17 02:56 68 The patient is minimally responsive and lethargic, normocephalic and atraumatic , lying in bed and in no acute distress. HEENT--PERRL, EOMI, mucous membranes and oropharynx dry. Neck--supple. No JVD. No bruits. Thyroid normal, trachea midline, no adenopathy. Heart--normal S1 and S2. No murmurs, rubs or gallops. Lungs--clear bilaterally, no respiratory distress, no accessory muscle use. Abdomen--normal bowel sounds and soft. Nontender. Nondistended, no hernias or masses, no organomegaly. Extremities--no cyanosis or clubbing. No edema. There are good distal pulses b/ l. Dermatologic--normal skin turgor, normal color, no abnormal lymph nodes, no rash. Neurologic--cranial nerves II through XII grossly intact. Rheumatologic--normal range of motion. Psychiatric--normal affect. Diagnostics Laboratory Results Results Past 24 Hours Test 11/14/17 02:50 Range/Units White Blood Count 8.41 4.8-10.8 K/uL Red Blood Count 4.89 4.7-6.1 M/uL Hemoglobin 14.9 14.0-18.0 g/dL Hematocrit 43.9 42-52 % Mean Corpuscular Volume 89.8 80-100 fL Mean Corpuscular Hemoglobin 30.5 25-34 pg Mean Corpuscular Hemoglobin Concent 33.9 32-36 g/dl Platelet Count 112 130-400 K/uL Mean Platelet Volume 10.5 7.4-10.4 fL Neutrophils (%) (Auto) 66.7 % Lymphocytes (%) (Auto) 19.6 % Monocytes (%) (Auto) 9.6 % Eosinophils (%) (Auto) 3.4 % Basophils (%) (Auto) 0.5 % Neutrophils # (Auto) 5.60 1.4-6.5 K/uL Lymphocytes # (Auto) 1.65 1.2-3.4 K/uL Monocytes # (Auto) 0.81 0.11-0.59 K/uL Eosinophils # (Auto) 0.29 0-0.5 K/uL Basophils # (Auto) 0.04 0-0.2 K/uL RDW Standard Deviation 45.2 36.4-46.3 fL RDW Coefficient of Variation 13.8 11.5-14.5 % Immature Granulocyte % (Auto) 0.2 % Immature Granulocyte # (Auto) 0.02 0.00-0.02 K/uL Prothrombin Time 10.3 9.0-12.0 SECONDS Prothromb Time International Ratio 1.0 0.9-1.1 Activated Partial Thromboplast Time 21.6 21.0-31.0 SECONDS Partial Thromboplastin Ratio 0.8 Sodium Level 139 136-145 mmol/L Potassium Level 3.4 3.5-5.1 mmol/L Chloride Level 104 98-107 mmol/L Carbon Dioxide Level 24 21-32 mmol/L Anion Gap 11.0 3-11 mmol/L Blood Urea Nitrogen 15 7-18 mg/dl Creatinine 0.90 0.60-1.40 mg/dl Est Creatinine Clear Calc Drug Dose 76.0 ml/min Estimated GFR () 91.9 Estimated GFR (Non- 79.3 BUN/Creatinine Ratio 17.0 10-20 Random Glucose 314 70-99 mg/dl Calcium Level 9.5 8.5-10.1 mg/dl Magnesium Level 1.8 1.8-2.4 mg/dl Troponin I 0.085 0-0.045 ng/ml Beta-Hydroxybutyric Acid 3.01 0.2-2.81 mg/dL Thyroid Stimulating Hormone (TSH) 1.530 0.300-4.500 uIu/ml CXR normal EKG JOHNIE MUSA ID:[id number] 14-NOV-2017 04:46:49 [facility] Sinus rhythm with 1st degree A-V block Right bundle branch block Abnormal ECG When compared with ECG of 18-NOV-2016 11:19, [place] interval has increased 25mm/s 10mm/mV 150Hz 8.0 SP2 12SL 241 NANCY: 7 Referred by: Unconfirmed Vent. rate 76 BPM [place] interval 230 ms QRS duration 154 ms QT/QTc 438/492 ms P-R-T axes 72 9 -15 1935 (82 yr) Male 99in Room:[facility] Loc:21 Dsp Engineer:Gaston Mosley Test Impression Assessment and Plan Complete heart block/status post TAVR bovine valve 11/08/17 /status post temporary transvenous pacer placement tonight by Dr. Naranjo-- Patient will be admitted to the ICU. NPO Will hold amlodipine, aspirin, carvedilol, clopidogrel and valsartan until procedure assessment. Order follow-up chest x-ray today and every morning. Follow serial cardiac enzymes. Serial CBC with differential, BMP, LFTs, PT/PTT/INR, EKG. Orders for as needed Lopressor IV and hydralazine IV. Consult Dr. Theodore for assessment for permanent pacemaker. Consult Dr. Naranjo for follow-up for temporary transvenous pacemaker. Consult lease out man for ongoing ICU management. Diabetes mellitus-- Hold metformin 1000 mg p.o. twice daily, Victoza 1.8 mg subcu daily with breakfast, chromium 200 mcg p.o. every evening and Invokana 300 mg p.o. daily with breakfast until procedure completed. Placed on Accu-Cheks before meals and at bedtime with NovoLog coverage per scale , unless patient meets criteria for ICU protocol insulin drip. COPD-- Continue Symbicort 160/4.5, 2 puffs twice daily and albuterol HFA 2 puffs every 6 hours as needed. Duonebs every 4 hours when necessary. BPH-- Hold Proscar. Hyperlipidemia-- Hold atorvastatin 80 mg p.o. every afternoon. Advanced Directives Existing Advance Directive: No Existing Living Will: No Existing Power of Fiber Optic Assembler: No Resuscitation Status VTE Prophylaxis Will order VTE Prophylaxis: Yes Social Service Consult None Apply Note Total Time: Critical Care 30 - 74 minutes
[2017-11-14] MEDS ORDERED: ACETAMINOPHEN 325 MG TAB PO PRN ×2 (05:00→15:30)
[2017-11-14] MEDS ORDERED: ALBUTEROL HFA 8 GM INHALER INH PRN (05:00)
[2017-11-14] MEDS ORDERED: LORAZEPAM 2 MG/ML 1 ML VIAL IV PRN (05:00)
[2017-11-14] MEDS ORDERED: MoRPHine SULFATE 2 MG/ML CARP IV PRN (05:00)
[2017-11-14] MEDS ORDERED: ICU PROTOCOL FOR HYPERGLYCEMIA PRN (05:00)
[2017-11-14] MEDS ORDERED: METOPROLOL TARTRATE 1 MG/ML VIAL IV PRN (05:15)
[2017-11-14] MEDS ORDERED: GLUCAGON FOR INJ 1 MG VIAL SQ PRN (05:15)
[2017-11-14] MEDS ORDERED: HydrALAZINE HCL 20 MG/ML VIAL IV. PRN (05:15)
[2017-11-14] MEDS ORDERED: CARBOHYDRATES FOR HYPOGLYCEMIA PO PRN (05:15)
[2017-11-14] MEDS ORDERED: GLUCOSE 10 TABS/TUBE PO PRN (05:15)
[2017-11-14] MEDS ORDERED: ACETAMINOPHEN IV 100 ML IV PRN (05:15)
[2017-11-14] MEDS ORDERED: ALBUT/IPRATROP 3MG/0.5MG NEB 3 ML VIAL INH PRN (05:15)
[2017-11-14] MEDS ORDERED: GLUCOSE 40% GEL 15 GM TUBE PO PRN (05:15)
[2017-11-14] MEDS ORDERED: DEXTROSE 50% 50 ML SYR IV PRN (05:15)
[2017-11-14] MEDS ORDERED: NSS + 20MEQ KCL 1000ML 1,000 ML IV SCH (05:30)
[2017-11-14] MEDS ORDERED: NURSING VERBAL MED ORDER ONE ×3 (05:45→17:00)
[2017-11-14] MEDS: INSULIN ASPART 100 UNITS/ML 3 ML PEN SC SCH ×4 (06:10→20:32)
[2017-11-14] MEDS ORDERED: INSULIN ASPART 100 UNITS/ML 3 ML PEN SC SCH (06:45)
--- NOTE | 2017-11-14 06:46 | DIAGNOSTIC IMAGING REPORT ---
CHEST ONE VIEW PORTABLE HISTORY: 82 years-old Male post transvenous pacer acute atypical chest pain COMPARISON: Chest radiograph of same day at 2:54 AM, CT chest 02/06/2017 TECHNIQUE: Portable AP view of the chest FINDINGS: Cardiac silhouette is enlarged. Graft of the aortic valve noted. Widening of the mediastinum is likely secondary to aortic tortuosity and pulmonary arterial dilation has seen on comparison chest CT. Right internal jugular catheter is noted with subtle tip projecting over the expected location of the right ventricle. No pneumothorax or pleural effusion. Mild right hemidiaphragmatic elevation. Pulmonary vascular congestion without overt pulmonary edema. Degenerative changes of the shoulders and spine. IMPRESSION: 1. Cardiomegaly with pulmonary vascular congestion. 2. Right internal jugular catheter distal tip projects over the expected location of the right ventricle. The above report was generated using voice recognition software. It may contain grammatical, syntax or spelling errors. Electronically signed by: Paxton Zapien M.D. 11/14/2017 6:45 AM Dictated Date/Time: 11/14/2017 6:42 AM
--- NOTE | 2017-11-14 06:51 | DIAGNOSTIC IMAGING REPORT ---
CHEST ONE VIEW PORTABLE HISTORY: 82 years-old Male eval for sob acute shortness of breath COMPARISON: Chest radiograph 05/01/2012 and chest radiograph 11/14/2017 at 5:17 AM TECHNIQUE: Portable AP view of the chest FINDINGS: Cardiac silhouette is enlarged. Graft of the aortic valve noted. Widening of the mediastinum is likely secondary to aortic tortuosity and pulmonary arterial dilation as seen on comparison chest CT. No pneumothorax or pleural effusion. Mild right hemidiaphragmatic elevation. Pulmonary vascular congestion without overt pulmonary edema. Degenerative changes of the shoulders and spine. IMPRESSION: Cardiomegaly with pulmonary vascular congestion. The above report was generated using voice recognition software. It may contain grammatical, syntax or spelling errors. Electronically signed by: Paxton Zapien M.D. 11/14/2017 6:50 AM Dictated Date/Time: 11/14/2017 6:48 AM
[2017-11-14 08:34] LABS: HEMATOCRIT 43.1 % (42-52); HEMOGLOBIN 14.7 g/dL (14.0-18.0); MEAN CELL VOLUME 88.5 fL (80-100); MEAN CORPUSCULAR HEMOGLOBIN 30.2 pg (25-34); RED CELL DISTRIBUTION WIDTH CV 13.7 % (11.5-14.5); RED CELL DISTRIBUTION WIDTH SD 44.5 fL (36.4-46.3); WHITE BLOOD COUNT 7.14 K/uL (4.8-10.8)
[2017-11-14 08:51] LABS: CALCIUM 9.7 mg/dl (8.5-10.1); CREATININE 0.57 mg/dl (0.60-1.40); PHOSPHORUS 2.9 mg/dl (2.5-4.9); POTASSIUM 3.9 mmol/L (3.5-5.1)
[2017-11-14] MEDS ORDERED: PANTOprazole INJ 40 MG in SYRINGE 0 ML IV SCH ×2 (09:00→11:00)
[2017-11-14 09:13] LABS: BASO % 0.1 %; BASO ABS # 0.01 K/uL (0-0.2); EOS % 0.1 %; EOS ABS # 0.01 K/uL (0-0.5); LYMPH % 6.9 %; LYMPH ABS # 0.49 K/uL (1.2-3.4); MEAN CORPUSCULAR HGB CONC 34.1 g/dl (32-36); MONO ABS # 0.36 K/uL (0.11-0.59); NEUT % 87.9 %; NEUT ABS # 6.27 K/uL (1.4-6.5); PLATELET COUNT 86 K/uL (130-400)
[2017-11-14] MEDS ORDERED: LACTATED RINGER'S 1000ML 1,000 ML IV ONE (11:32)
--- NOTE | 2017-11-14 11:43 | Cardiology Consultation ---
Cardiology Consultation Date of Consultation: Nov 14, 2017. Requesting Physician: Dr. Naranjo Reason for Consultation: Complete heart block Pt evaluation today including: conversation w/ patient, conversation w/ family , physical exam, lab review, review of studies, review of inpatient medication list History of Present Illness This is a very pleasant 82-year-old gentleman who has a history of severe aortic stenosis as well as coronary artery disease. He had stent placement in 2016, more recently 5 days prior to admission he had a TAVR placed at [place]. I believe he had transient heart block after valve replacement and had a temporary pacemaker, but that resolved and he was sent home. Last night he developed periods of complete heart block and his noticed that he was thrashing around in breathing in an odd manner suggesting that he may have had somewhat prolonged episodes of heart block although that was not documented. He does not recall having syncope. He came into the hospital and here he was in sinus rhythm with first-degree AV block and a right bundle branch block pattern. A temporary pacemaker was placed via the right IJ approach. Today he feels well, he is having no chest discomfort, has had no further presyncopal spells since admission. Past Medical/Surgical History (1) Diabetes mellitus (2) HTN (hypertension) (3) Emphysema/COPD Family History Cancer Diabetes mellitus FH: heart disease FHx: lung disease Hypertension Social History Smoking Status: Never Smoker History of Alcohol Use: No Review of Systems Constitutional: No fever, No weight loss, No weakness Respiratory: No cough, No wheezing, No shortness of breath, No dyspnea on exertion Cardiac: + see HPI, No chest pain, No orthopnea, No PND, No edema, No palpitations Abdomen: No pain, No nausea, No vomiting, No diarrhea, No GI bleeding Male : No urinary frequency, No nocturia more than once/night, No slowing stream, No sexual dysfunction Neurologic: No paralysis, No weakness, No numbness/tingling, No balance problems Heme: No abnormal bleeding/bruising, No clotting problems Endo: No fatigue Skin: No problem reported All Other Systems: Reviewed and Negative Allergies Coded Allergies: Adhesives (Verified Allergy, Unknown, REDNESS, 11/25/16) Latex1 -Allergic Contact Dermititis (Verified Allergy, Unknown, unknown, ) Medications Current Inpatient Medications Medications (Trade) Dose Ordered Sig/Madeleine Route Start Time Stop Time Status Last Admin Dose Admin Lorazepam (Ativan Inj) 0.5 mg Q4H PRN IV 11/14/17 05:00 12/14/17 04:59 Morphine Sulfate (MoRPHine SULFATE INJ) 2 mg Q2H PRN IV 11/14/17 05:00 11/28/17 04:59 Miscellaneous Information (Icu Protocol For Hyperglycemia) 1 ea PRN PRN N/A 11/14/17 05:00 11/16/17 04:59 Albuterol (Ventolin Hfa Inhaler) 2 puffs Q6H PRN INH 11/14/17 05:00 12/14/17 04:59 Acetaminophen 100 ml @ 400 mls/hr Q8H PRN IV 11/14/17 05:15 12/14/17 05:14 Pantoprazole Sodium 40 mg/ Syringe 10 ml @ 5 mls/min DAILY@11 IV 11/14/17 11:00 11/17/17 11:01 Potassium Chloride/Sodium Chloride 1,000 ml @ 100 mls/hr Q10H IV 11/14/17 05:30 12/14/17 05:07 11/14/17 05:53 100 MLS/HR Albuterol/ Ipratropium (Duoneb) 3 ml Q4 PRN INH 11/14/17 05:15 12/14/17 05:14 Metoprolol Tartrate (Lopressor Iv) 5 mg Q4 PRN IV 11/14/17 05:15 12/14/17 05:14 Hydralazine HCl (HydrALAZINE INJ) 10 mg Q4H PRN IV. 11/14/17 05:15 12/14/17 05:14 Glucose (Glucose 40% Gel) 15-30 GRAMS 15 GRAMS... UD PRN PO 11/14/17 05:15 12/14/17 05:14 Glucose (Glucose Chew Tab) 4-8 Tablets 4 Tabl... UD PRN PO 11/14/17 05:15 12/14/17 05:14 Dextrose (Dextrose 50% 50ML Syringe) 25-50ML OF 50% DW IV FOR... UD PRN IV 11/14/17 05:15 12/14/17 05:14 Glucagon (Glucagon Inj) 1 mg UD PRN SQ 11/14/17 05:15 12/14/17 05:14 Carbohydrates (Carbohydrates For Hypoglycemia) 15-30 GRAMS 15 grams if BSG 54-69... UD PRN PO 11/14/17 05:15 12/14/17 05:14 Insulin Aspart (novoLOG ASPART) SLIDING SCALE If C... Q6 SC 11/14/17 06:00 12/14/17 05:59 11/14/17 06:10 1 UNITS Physical Exam Vital Signs Past 12 Hours Date Time Temp Pulse Resp B/P (MAP) Pulse Ox O2 Delivery O2 Flow Rate FiO2 11/14/17 10:01 88 10 145/79 (101) 95 Room Air 11/14/17 09:54 88 15 156/78 (104) 95 Room Air 11/14/17 09:01 87 14 156/78 (104) 95 Room Air 11/14/17 08:01 36.5 80 15 145/82 (103) 93 Room Air 11/14/17 08:00 Room Air 11/14/17 07:01 83 16 161/87 (111) 97 Room Air 11/14/17 06:31 83 16 145/72 (96) 93 11/14/17 06:30 81 94 11/14/17 06:16 84 150/75 (100) 94 Room Air 11/14/17 06:15 80 94 Room Air 11/14/17 06:01 80 145/74 (97) 95 Room Air 11/14/17 06:00 85 18 95 Room Air 11/14/17 05:46 78 141/78 (99) 93 Room Air 11/14/17 05:45 79 92 Room Air 11/14/17 05:31 83 156/81 (106) 96 Room Air 11/14/17 05:30 84 96 Room Air 11/14/17 05:16 81 135/74 (94) 93 Room Air 11/14/17 05:15 80 93 Room Air 11/14/17 05:04 98 Room Air 11/14/17 05:01 78 18 136/74 (94) 91 Room Air 11/14/17 05:00 79 93 Room Air 11/14/17 04:46 36.6 80 152/79 (103) 95 Room Air 11/14/17 04:45 77 97 Room Air 11/14/17 04:30 83 16 95 Room Air 11/14/17 04:25 36.3 69 16 143/79 98 Room Air 11/14/17 04:08 71 16 143/84 (103) 95 Room Air 11/14/17 03:30 77 16 140/74 98 Nasal Cannula 4.0 11/14/17 03:20 74 16 148/79 98 Nasal Cannula 4.0 11/14/17 03:10 78 16 158/86 99 Nasal Cannula 4.0 11/14/17 03:07 69 11/14/17 03:00 99 Nasal Cannula 4.0 11/14/17 03:00 99 Nasal Cannula 4.0 11/14/17 02:59 36.5 69 22 162/84 95 Room Air 15.0 Non-Rebreather 11/14/17 02:56 68 Constitutional: General Apperance: heathly-appearing Level of Distress: NAD Psychiatric: Mental Status: active & alert Head: normocephalic Eyes: EOM: EOMI ENMT: normal ENT inspection, hearing grossly normal Neck: supple, no masses, pertinent finding (Temporary pacemaker and right IJ) Lungs: Respiratory effort: no dyspnea, good air movement Auscultation: breath sounds normal, no wheezing Cardiovascular: Heart Auscultation: RRR, no murmurs, no rubs, no gallops Peripheral Pulses: Bruits: none appreciated Abdomen: Bowel Sounds: normal Inspection & Palpation: soft, no tenderness, guarding & rebound, no masses Musculoskeletal: normal strength (5/5 throughout) Extremities: no edema Neurologic: Cranial Nerves: grossly intact Sensation: grossly intact Data Laboratory Results: Last 24 Hours Test 11/14/17 02:50 11/14/17 05:21 11/14/17 05:57 11/14/17 08:25 White Blood Count 8.41 K/uL 7.14 K/uL Red Blood Count 4.89 M/uL 4.87 M/uL Hemoglobin 14.9 g/dL 14.7 g/dL Hematocrit 43.9 % 43.1 % Mean Corpuscular Volume 89.8 fL 88.5 fL Mean Corpuscular Hemoglobin 30.5 pg 30.2 pg Mean Corpuscular Hemoglobin Concent 33.9 g/dl 34.1 g/dl Platelet Count 112 K/uL 86 K/uL Mean Platelet Volume 10.5 fL 10.0 fL Neutrophils (%) (Auto) 66.7 % 87.9 % Lymphocytes (%) (Auto) 19.6 % 6.9 % Monocytes (%) (Auto) 9.6 % 5.0 % Eosinophils (%) (Auto) 3.4 % 0.1 % Basophils (%) (Auto) 0.5 % 0.1 % Neutrophils # (Auto) 5.60 K/uL 6.27 K/uL Lymphocytes # (Auto) 1.65 K/uL 0.49 K/uL Monocytes # (Auto) 0.81 K/uL 0.36 K/uL Eosinophils # (Auto) 0.29 K/uL 0.01 K/uL Basophils # (Auto) 0.04 K/uL 0.01 K/uL RDW Standard Deviation 45.2 fL 44.5 fL RDW Coefficient of Variation 13.8 % 13.7 % Immature Granulocyte % (Auto) 0.2 % 0.0 % Immature Granulocyte # (Auto) 0.02 K/uL 0.00 K/uL Prothrombin Time 10.3 SECONDS Prothromb Time International Ratio 1.0 Activated Partial Thromboplast Time 21.6 SECONDS Partial Thromboplastin Ratio 0.8 Sodium Level 139 mmol/L 140 mmol/L Potassium Level 3.4 mmol/L 3.9 mmol/L Chloride Level 104 mmol/L 105 mmol/L Carbon Dioxide Level 24 mmol/L 27 mmol/L Anion Gap 11.0 mmol/L 9.0 mmol/L Blood Urea Nitrogen 15 mg/dl 14 mg/dl Creatinine 0.90 mg/dl 0.57 mg/dl Est Creatinine Clear Calc Drug Dose 76.0 ml/min 109.7 ml/min Estimated GFR () 91.9 110.8 Estimated GFR (Non- 79.3 95.6 BUN/Creatinine Ratio 17.0 23.5 Random Glucose 314 mg/dl 162 mg/dl Calcium Level 9.5 mg/dl 9.7 mg/dl Magnesium Level 1.8 mg/dl 1.8 mg/dl Troponin I 0.085 ng/ml 0.091 ng/ml Beta-Hydroxybutyric Acid 3.01 mg/dL Thyroid Stimulating Hormone (TSH) 1.530 uIu/ml Bedside Glucose 179 mg/dl Platelet Estimate DECREASED Echinocytes 1+ Ionized Calcium 1.22 mmol/l Phosphorus Level 2.9 mg/dl EKG: Sinus rhythm with first-degree AV block and right bundle branch block Telemetry reviewed: Sinus rhythm with first-degree AV block Assessment & Plan 1. Complete heart block: 5 days post TAVR he had documented intermittent complete heart block. I believe he also had early postoperatively but it resolved. He presents with a symptomatic period of complete heart block and near syncope or more likely syncope and loss of consciousness but he was in bed. He clearly needs a pacemaker. He is conducting with a first-degree AV block most the time with a right bundle branch block pattern. Probably he has transient left bundle branch block as well resulting in complete heart block. With this will progress or resolve is not clear but he clearly needs a permanent pacemaker now. Since he will likely not pace a lot, at least near future, I would recommend a dual-chamber pacemaker not a biventricular device. He does not have left ventricular dysfunction and does not need an ICD. I discussed the indications, procedure, risks and alternatives with him and his and he understands and agrees to proceed. Consent for pacemaker obtained. I also reviewed conscious sedation with him and consent obtained. 2. Right bundle branch block: He had a right bundle branch block pattern with a normal GA interval preceding his valve replacement. His intraventricular conduction pattern is the same now but he has first-degree AV block, possibly due to partial effect on the left bundle branch.
--- NOTE | 2017-11-14 11:50 | Critical Care Consultation ---
Critical Care Consultation Date of Consultation: Nov 14, 2017. Attending Physician: Zander Boston M.D. Reason for Consultation: Critical care evaluation and management History of Present Illness The patient is an 82-year-old man who had a TAVR 6 days ago at [facility]. He was admitted here overnight with severe weakness and bradycardia followed by a syncopal episode. Emergency department evaluation showed episodes of complete heart block and the patient was taken to [facility] where he had a transvenous temporary pacemaker placed. He was then admitted to ICU. He has been seen by the director of rehabilitation and wellness who plans to place a permanent pacer later today. He is awake alert without complaints breathing comfortably on room air Family History Cancer Diabetes mellitus FH: heart disease FHx: lung disease Hypertension No longer relevant Social History Smoking Status: Never Smoker Smokeless Tobacco Use: No Alcohol Use: none Drug Use: none Marital Status: Housing Status: lives with significant other Occupation Status: retired Allergies Coded Allergies: Adhesives (Verified Allergy, Unknown, REDNESS, 11/25/16) Latex1 -Allergic Contact Dermititis (Verified Allergy, Unknown, unknown, ) Home Medications Scheduled Amlodipine Besylate (Norvasc), 10 MG PO QAM Aspirin (Aspirin 81), 81 MG PO QPM Atorvastatin (Lipitor), 80 MG PO QPM Budesonide/Formoterol Fumarate (Symbicort 160/4.5 Inhaler ), 2 PUFFS INH BID Canagliflozin (Invokana), 300 MG PO DAILYBB Carvedilol (Coreg), 12.5 MG PO BID Cholecalciferol (Vitamin D3), 1 CAP PO BID Chromium (Chromium), 200 MCG PO QPM Clopidogrel (Plavix), 75 MG PO QAM Coenzyme Q10 (Ubidecarenone) (Coq10), 100 MG PO QPM Cyanocobalamin (B-12), 1 TAB PO QAM Finasteride (Proscar), 5 MG PO QAM Liraglutide (Victoza), 1.8 MG SQ DAILYBB Melatonin-Pyridoxine (Melatonin), 2 TABS PO nightly Metformin Hcl (Glucophage), 1,000 MG PO BID Metronidazole (Topical) (Metrogel), 1 APPLN TOP QPM Multiple Vitamin (Multivitamin), 1 TAB PO QPM Potassium Chloride (K-Tab), 20 MEQ PO BID Valsartan (Diovan), 320 MG PO QAM Scheduled PRN Acetaminophen (Tylenol), 1,000 MG PO HS PRN for Pain Albuterol Hfa (Ventolin Hfa), 2-4 PUFFS INH Q6H PRN for SOB/Wheezing Azelastine Hcl (Astelin Nasal [place]), 1-2 SPRAYS NA BID PRN for Nasal Congestion Chlorpheniramine Maleate (Allergy), 4 MG PO every 4 hrs PRN for allergy Fluocinonide (Fluocinonide), 1 INCH TOP for skin irritation Guaifenesin (Robitussin), 1 DOSE PO UD PRN for Cough Guaifenesin Ext Rel (Mucinex Ext Rel), 1,200 MG PO Q12 PRN for Nasal Congestion Current Inpatient Medications Current Inpatient Medications Medications (Trade) Dose Ordered Sig/Madeleine Route Start Time Stop Time Status Last Admin Dose Admin Lorazepam (Ativan Inj) 0.5 mg Q4H PRN IV 11/14/17 05:00 12/14/17 04:59 Morphine Sulfate (MoRPHine SULFATE INJ) 2 mg Q2H PRN IV 11/14/17 05:00 11/28/17 04:59 Miscellaneous Information (Icu Protocol For Hyperglycemia) 1 ea PRN PRN N/A 11/14/17 05:00 11/16/17 04:59 Albuterol (Ventolin Hfa Inhaler) 2 puffs Q6H PRN INH 11/14/17 05:00 12/14/17 04:59 Acetaminophen 100 ml @ 400 mls/hr Q8H PRN IV 11/14/17 05:15 12/14/17 05:14 Pantoprazole Sodium 40 mg/ Syringe 10 ml @ 5 mls/min DAILY@11 IV 11/14/17 11:00 11/17/17 11:01 Potassium Chloride/Sodium Chloride 1,000 ml @ 100 mls/hr Q10H IV 11/14/17 05:30 12/14/17 05:07 11/14/17 05:53 100 MLS/HR Albuterol/ Ipratropium (Duoneb) 3 ml Q4 PRN INH 11/14/17 05:15 12/14/17 05:14 Metoprolol Tartrate (Lopressor Iv) 5 mg Q4 PRN IV 11/14/17 05:15 12/14/17 05:14 Hydralazine HCl (HydrALAZINE INJ) 10 mg Q4H PRN IV. 11/14/17 05:15 12/14/17 05:14 Glucose (Glucose 40% Gel) 15-30 GRAMS 15 GRAMS... UD PRN PO 11/14/17 05:15 12/14/17 05:14 Glucose (Glucose Chew Tab) 4-8 Tablets 4 Tabl... UD PRN PO 11/14/17 05:15 12/14/17 05:14 Dextrose (Dextrose 50% 50ML Syringe) 25-50ML OF 50% DW IV FOR... UD PRN IV 11/14/17 05:15 12/14/17 05:14 Glucagon (Glucagon Inj) 1 mg UD PRN SQ 11/14/17 05:15 12/14/17 05:14 Carbohydrates (Carbohydrates For Hypoglycemia) 15-30 GRAMS 15 grams if BSG 54-69... UD PRN PO 11/14/17 05:15 12/14/17 05:14 Insulin Aspart (novoLOG ASPART) SLIDING SCALE If C... Q6 SC 11/14/17 06:00 12/14/17 05:59 11/14/17 06:10 1 UNITS Review of Systems Constitutional: No fever, No chills Eyes: No worsening of vision, No eye pain, No redness, No discharge, No diplopia, No problem reported ENT: No hearing loss, No unusual epistaxis, No nasal symptoms, No sore throat, No tinnitus, No dental problems, No trouble swallowing, No problem reported Respiratory: No cough, No sputum, No wheezing, No shortness of breath, No dyspnea on exertion, No dyspnea at rest, No hemoptysis, No problem reported Cardiovascular: + palpitations Abdomen: No pain, No nausea, No vomiting, No diarrhea, No constipation, No GI bleeding, No problem reported Musculoskeletal: No joint pain, No muscle pain, No swelling, No calf pain, No problem reported Genitourinary - Male: No hematuria, No dysuria, No urinary frequency, No urinary urgency, No urinary hesitancy, No urinary retention, No urinary incontinence, No penile discharge, No lesions, No impotence, No problem reported Physical Exam Date Time Temp Pulse Resp B/P (MAP) Pulse Ox O2 Delivery O2 Flow Rate FiO2 11/14/17 10:01 88 10 145/79 (101) 95 Room Air 11/14/17 09:54 88 15 156/78 (104) 95 Room Air 11/14/17 09:01 87 14 156/78 (104) 95 Room Air 11/14/17 08:01 36.5 80 15 145/82 (103) 93 Room Air 11/14/17 08:00 Room Air 11/14/17 07:01 83 16 161/87 (111) 97 Room Air 11/14/17 06:31 83 16 145/72 (96) 93 11/14/17 06:30 81 94 11/14/17 06:16 84 150/75 (100) 94 Room Air 11/14/17 06:15 80 94 Room Air 11/14/17 06:01 80 145/74 (97) 95 Room Air 11/14/17 06:00 85 18 95 Room Air 11/14/17 05:46 78 141/78 (99) 93 Room Air 11/14/17 05:45 79 92 Room Air 11/14/17 05:31 83 156/81 (106) 96 Room Air 11/14/17 05:30 84 96 Room Air 11/14/17 05:16 81 135/74 (94) 93 Room Air 11/14/17 05:15 80 93 Room Air 11/14/17 05:04 98 Room Air 11/14/17 05:01 78 18 136/74 (94) 91 Room Air 11/14/17 05:00 79 93 Room Air 11/14/17 04:46 36.6 80 152/79 (103) 95 Room Air 11/14/17 04:45 77 97 Room Air 11/14/17 04:30 83 16 95 Room Air 11/14/17 04:25 36.3 69 16 143/79 98 Room Air 11/14/17 04:08 71 16 143/84 (103) 95 Room Air 11/14/17 03:30 77 16 140/74 98 Nasal Cannula 4.0 11/14/17 03:20 74 16 148/79 98 Nasal Cannula 4.0 11/14/17 03:10 78 16 158/86 99 Nasal Cannula 4.0 11/14/17 03:07 69 11/14/17 03:00 99 Nasal Cannula 4.0 11/14/17 03:00 99 Nasal Cannula 4.0 11/14/17 02:59 36.5 69 22 162/84 95 Room Air 15.0 Non-Rebreather 11/14/17 02:56 68 General Appearance: WD/WN, no apparent distress Head: normocephalic Eyes: PERRLA, EOMI, sclerae normal Neck: supple Respiratory: clear to auscultation Cardiovasular: regular rate/rhythm, no murmur Abdomen: non tender, normal bowel sounds Lower Extremities: no edema Laboratory Results Last 24 Hours Test 11/14/17 02:50 11/14/17 05:21 11/14/17 05:57 11/14/17 08:25 White Blood Count 8.41 K/uL 7.14 K/uL Red Blood Count 4.89 M/uL 4.87 M/uL Hemoglobin 14.9 g/dL 14.7 g/dL Hematocrit 43.9 % 43.1 % Mean Corpuscular Volume 89.8 fL 88.5 fL Mean Corpuscular Hemoglobin 30.5 pg 30.2 pg Mean Corpuscular Hemoglobin Concent 33.9 g/dl 34.1 g/dl Platelet Count 112 K/uL 86 K/uL Mean Platelet Volume 10.5 fL 10.0 fL Neutrophils (%) (Auto) 66.7 % 87.9 % Lymphocytes (%) (Auto) 19.6 % 6.9 % Monocytes (%) (Auto) 9.6 % 5.0 % Eosinophils (%) (Auto) 3.4 % 0.1 % Basophils (%) (Auto) 0.5 % 0.1 % Neutrophils # (Auto) 5.60 K/uL 6.27 K/uL Lymphocytes # (Auto) 1.65 K/uL 0.49 K/uL Monocytes # (Auto) 0.81 K/uL 0.36 K/uL Eosinophils # (Auto) 0.29 K/uL 0.01 K/uL Basophils # (Auto) 0.04 K/uL 0.01 K/uL RDW Standard Deviation 45.2 fL 44.5 fL RDW Coefficient of Variation 13.8 % 13.7 % Immature Granulocyte % (Auto) 0.2 % 0.0 % Immature Granulocyte # (Auto) 0.02 K/uL 0.00 K/uL Prothrombin Time 10.3 SECONDS Prothromb Time International Ratio 1.0 Activated Partial Thromboplast Time 21.6 SECONDS Partial Thromboplastin Ratio 0.8 Sodium Level 139 mmol/L 140 mmol/L Potassium Level 3.4 mmol/L 3.9 mmol/L Chloride Level 104 mmol/L 105 mmol/L Carbon Dioxide Level 24 mmol/L 27 mmol/L Anion Gap 11.0 mmol/L 9.0 mmol/L Blood Urea Nitrogen 15 mg/dl 14 mg/dl Creatinine 0.90 mg/dl 0.57 mg/dl Est Creatinine Clear Calc Drug Dose 76.0 ml/min 109.7 ml/min Estimated GFR () 91.9 110.8 Estimated GFR (Non- 79.3 95.6 BUN/Creatinine Ratio 17.0 23.5 Random Glucose 314 mg/dl 162 mg/dl Calcium Level 9.5 mg/dl 9.7 mg/dl Magnesium Level 1.8 mg/dl 1.8 mg/dl Troponin I 0.085 ng/ml 0.091 ng/ml Beta-Hydroxybutyric Acid 3.01 mg/dL Thyroid Stimulating Hormone (TSH) 1.530 uIu/ml Bedside Glucose 179 mg/dl Platelet Estimate DECREASED Echinocytes 1+ Ionized Calcium 1.22 mmol/l Phosphorus Level 2.9 mg/dl Assessment & Plan Complete heart block occurring 1 week post TAVR -For permanent pacer this afternoon History of COPD with no evidence of acute exacerbation Thank you for this consultation critical care service will be available as needed
[2017-11-14] MEDS ORDERED: CEFAZOLIN IV 2,000 MG in SYRINGE 0 ML IV SCH (12:15)
--- NOTE | 2017-11-14 12:57 | Pre Sedation Assessment ---
Pre Sedation Assessment General Date of Sedation: Nov 14, 2017. Vital Signs Past 12 Hours Date Time Temp Pulse Resp B/P (MAP) Pulse Ox O2 Delivery O2 Flow Rate FiO2 11/14/17 12:01 36.6 78 19 161/88 (112) 95 Room Air 11/14/17 10:01 88 10 145/79 (101) 95 Room Air 11/14/17 09:54 88 15 156/78 (104) 95 Room Air 11/14/17 09:01 87 14 156/78 (104) 95 Room Air 11/14/17 08:01 36.5 80 15 145/82 (103) 93 Room Air 11/14/17 08:00 Room Air 11/14/17 07:01 83 16 161/87 (111) 97 Room Air 11/14/17 06:31 83 16 145/72 (96) 93 11/14/17 06:30 81 94 11/14/17 06:16 84 150/75 (100) 94 Room Air 11/14/17 06:15 80 94 Room Air 11/14/17 06:01 80 145/74 (97) 95 Room Air 11/14/17 06:00 85 18 95 Room Air 11/14/17 05:46 78 141/78 (99) 93 Room Air 11/14/17 05:45 79 92 Room Air 11/14/17 05:31 83 156/81 (106) 96 Room Air 11/14/17 05:30 84 96 Room Air 11/14/17 05:16 81 135/74 (94) 93 Room Air 11/14/17 05:15 80 93 Room Air 11/14/17 05:04 98 Room Air 11/14/17 05:01 78 18 136/74 (94) 91 Room Air 11/14/17 05:00 79 93 Room Air 11/14/17 04:46 36.6 80 152/79 (103) 95 Room Air 11/14/17 04:45 77 97 Room Air 11/14/17 04:30 83 16 95 Room Air 11/14/17 04:25 36.3 69 16 143/79 98 Room Air 11/14/17 04:08 71 16 143/84 (103) 95 Room Air 11/14/17 03:30 77 16 140/74 98 Nasal Cannula 4.0 11/14/17 03:20 74 16 148/79 98 Nasal Cannula 4.0 11/14/17 03:10 78 16 158/86 99 Nasal Cannula 4.0 11/14/17 03:07 69 11/14/17 03:00 99 Nasal Cannula 4.0 11/14/17 03:00 99 Nasal Cannula 4.0 11/14/17 02:59 36.5 69 22 162/84 95 Room Air 15.0 Non-Rebreather 11/14/17 02:56 68 Review Cardiovascular: regular rate, rhythm, + pertinent finding (Good prosthetic valve sounds) Pre-Sedation Airway Assessment Smoking Status: Never Smoker Hx of Sleep Apnea: No Hx of difficult intubation: No Short Thick Neck: No Thyro-mental Distance: > 3 Finger Breadths Oral Cavity: WNL Mallampati Classification: Class II ASA Classification: Class III NPO Status Date of Last Intake of Fluids: Nov 13, 2017 Date of Last Intake of Solids: Nov 13, 2017 Procedure Planning Contraindications for Sedation: None Current Medications Reviewed: Yes Notes The planned sedation has been discussed with the patient. Informed Consent was obtained. I have identified the patient, determined the appropriateness of sedation and have assessed the patient immediately prior to the procedure. All medicine(s) and interventions are by my order.
[2017-11-14] MEDS ORDERED: BACITRACIN 50000 UNIT VIAL ONE (14:08)
[2017-11-14] MEDS ORDERED: BACITRACIN OINT 0.9 GM PKT ONE (14:08)
[2017-11-14] MEDS ORDERED: LIDOCAINE HCL 1% 20 ML VIAL ONE (14:08)
[2017-11-14] MEDS ORDERED: MIDAZOLAM HCL 5 MG/ML 1 ML VIAL ONE (14:09)
--- NOTE | 2017-11-14 14:56 | Progress Note ---
Subjective Date of Service: Nov 14, 2017. Subjective pt feels improved since temporary pacemaker is placed, for PPM 11/14. He has no other complaints Problem List Medical Problems: (1) Fall Status: Acute (2) Fracture of one rib, right side, initial encounter for closed fracture Status: Acute (3) Ventricular asystolia Status: Acute Review of Systems Constitutional: + weakness, + fatigue Respiratory: No cough, No wheezing, No shortness of breath Cardiac: No chest pain, No edema Abdomen: No pain, No nausea, No vomiting, No diarrhea Musculoskeletal: No joint pain, No muscle pain Psychiatric: No depression symptoms, No anxiety Objective Vital Signs Date Time Temp Pulse Resp B/P (MAP) Pulse Ox O2 Delivery O2 Flow Rate FiO2 11/14/17 06:31 83 16 145/72 (96) 93 11/14/17 06:30 81 94 11/14/17 06:16 84 150/75 (100) 94 Room Air 11/14/17 06:15 80 94 Room Air 11/14/17 06:01 80 145/74 (97) 95 Room Air 11/14/17 06:00 85 18 95 Room Air 11/14/17 05:46 78 141/78 (99) 93 Room Air 11/14/17 05:45 79 92 Room Air 11/14/17 05:31 83 156/81 (106) 96 Room Air 11/14/17 05:30 84 96 Room Air 11/14/17 05:16 81 135/74 (94) 93 Room Air 11/14/17 05:15 80 93 Room Air 11/14/17 05:04 98 Room Air 11/14/17 05:01 78 18 136/74 (94) 91 Room Air 11/14/17 05:00 79 93 Room Air 11/14/17 04:46 36.6 80 152/79 (103) 95 Room Air 11/14/17 04:45 77 97 Room Air 11/14/17 04:30 83 16 95 Room Air 11/14/17 04:25 36.3 69 16 143/79 98 Room Air 11/14/17 04:08 71 16 143/84 (103) 95 Room Air 11/14/17 03:30 77 16 140/74 98 Nasal Cannula 4.0 11/14/17 03:20 74 16 148/79 98 Nasal Cannula 4.0 11/14/17 03:10 78 16 158/86 99 Nasal Cannula 4.0 11/14/17 03:07 69 11/14/17 03:00 99 Nasal Cannula 4.0 11/14/17 03:00 99 Nasal Cannula 4.0 11/14/17 02:59 36.5 69 22 162/84 95 Room Air 15.0 Non-Rebreather 11/14/17 02:56 68 Physical Exam General Appearance: WD/WN, + mild distress Eyes: normal inspection, sclerae normal Neck: supple, no JVD Respiratory/Chest: chest non-tender, lungs clear, normal breath sounds Cardiovascular: regular rate, rhythm, no murmur Abdomen: normal bowel sounds, non tender, soft Neurologic/Psychiatric: alert, oriented x 3 Laboratory Results Last 24 Hours Test 11/14/17 02:50 11/14/17 05:21 11/14/17 05:57 11/14/17 08:10 White Blood Count 8.41 K/uL Red Blood Count 4.89 M/uL Hemoglobin 14.9 g/dL Hematocrit 43.9 % Mean Corpuscular Volume 89.8 fL Mean Corpuscular Hemoglobin 30.5 pg Mean Corpuscular Hemoglobin Concent 33.9 g/dl Platelet Count 112 K/uL Mean Platelet Volume 10.5 fL Neutrophils (%) (Auto) 66.7 % Lymphocytes (%) (Auto) 19.6 % Monocytes (%) (Auto) 9.6 % Eosinophils (%) (Auto) 3.4 % Basophils (%) (Auto) 0.5 % Neutrophils # (Auto) 5.60 K/uL Lymphocytes # (Auto) 1.65 K/uL Monocytes # (Auto) 0.81 K/uL Eosinophils # (Auto) 0.29 K/uL Basophils # (Auto) 0.04 K/uL RDW Standard Deviation 45.2 fL RDW Coefficient of Variation 13.8 % Immature Granulocyte % (Auto) 0.2 % Immature Granulocyte # (Auto) 0.02 K/uL Prothrombin Time 10.3 SECONDS Prothromb Time International Ratio 1.0 Activated Partial Thromboplast Time 21.6 SECONDS Partial Thromboplastin Ratio 0.8 Sodium Level 139 mmol/L Potassium Level 3.4 mmol/L Chloride Level 104 mmol/L Carbon Dioxide Level 24 mmol/L Anion Gap 11.0 mmol/L Blood Urea Nitrogen 15 mg/dl Creatinine 0.90 mg/dl Est Creatinine Clear Calc Drug Dose 76.0 ml/min Estimated GFR () 91.9 Estimated GFR (Non- 79.3 BUN/Creatinine Ratio 17.0 Random Glucose 314 mg/dl Calcium Level 9.5 mg/dl Magnesium Level 1.8 mg/dl Troponin I 0.085 ng/ml 0.091 ng/ml Beta-Hydroxybutyric Acid 3.01 mg/dL Thyroid Stimulating Hormone (TSH) 1.530 uIu/ml Bedside Glucose 179 mg/dl Assessment and Plan 82 M Complete heart block/status post TAVR e 11/08/17 /status post temporary transvenous pacer placement by Dr. Naranjo Complete heart block, did have transient heart block after procedure initally that resolved, will be evaluated for permanent pacemaker CAD/HTN holding amlodipine, aspirin, carvedilol, clopidogrel and valsartan. Blood pressure is acceptable Diabetes mellitus--Hold metformin 1000 mg p.o. twice daily, Victoza 1.8 mg subcu daily with breakfast, chromium 200 mcg p.o. every evening and Invokana 300 mg p.o. daily with SSI and frequent BSG COPD--clinically stable on Symbicort 160/4.5, 2 puffs twice daily and albuterol HFA 2 puffs every 6 hours as needed. Duonebs every 4 hours when necessary. BPH--Holding Proscar. Hyperlipidemia--Holding atorvastatin 80 mg .
--- NOTE | 2017-11-14 15:20 | [facility] Operative Report ---
Operative Report Operative Date Nov 14, 2017. Pre-Operative Diagnosis Intermittent complete heart block Post-Operative Diagnosis Same Procedure(s) Performed Dual-chamber pacemaker implantation Temporary pacemaker removal Surgeon Dr. 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 The left prepectoral region was anesthetized with 1% lidocaine local anesthetic and left axillary venipuncture was performed by percutaneous technique and a guidewire placed through the left subclavian vein into the superior vena cava. The area was further infiltrated with 1% lidocaine local anesthetic and a 5 cm incision was made parallel to the left clavicle and 2 cm below it and carried down to the anterior pectoralis fascia. A pacemaker pocket was formed by blunt dissection anterior to the pectoralis fascia and a bacitracin-soaked sponge (50, 000 units in 50 cc normal saline solution) was placed in the pocket. An 8 Brazilian Medtronic lead introducer was placed over the guidewire into the left subclavian vein, the dilator and guidewire were removed and a bipolar active fixation steroid tipped ventricular lead was advanced through the introducer into the superior vena cava. A guidewire was placed through the introducer and the introducer was stripped from the lead and guidewire. Another 8 Brazilian Medtronic lead introducer was placed over the guidewire into the left subclavian vein, the dilator and guidewire were removed and a bipolar active fixation steroid tipped atrial lead was advanced through the introducer into the superior vena cava. A guidewire was placed back through the introducer and the introducer was stripped from the lead and guidewire. Using a curved stylette the ventricular lead was advanced through the right ventricular outflow tract into the pulmonary artery and then using a straight stylette was positioned in the right ventricular apex. The screw was extended fixing the lead in position. Pacing and sensing thresholds were evaluated in bipolar configuration and are recorded on the implant data sheet. Using a curved stylette the atrial lead was positioned in the region of the atrial appendage and the screw extended fixing the lead in position. Pacing and sensing thresholds were evaluated in bipolar configuration and are recorded on the implant data sheet. Once the leads were in position they were attached to the anterior pectoralis fascia using 2 sutures of 2-0 silk around each lead collar. The bacitracin- soaked sponge was removed from the pocket, hemostasis was obtained, the pacemaker was attached to the leads and placed in the pocket with the leads coiled beneath it. The incision was closed with a running double subcutaneous closure of 3-0 Vicryl absorbable suture, followed by running subcuticular skin closure of 4-0 Vicryl absorbable suture. Bacitracin ointment was placed on the incision and a pressure dressing applied. I attest to the content of the Intraoperative Record and any orders documented therein. Any exceptions are noted below.
--- NOTE | 2017-11-14 15:25 | Post Sedation Assessment ---
Post Sedation Assessment General Date of Sedation Nov 14, 2017. Vital Signs: Vital Signs Past 12 Hours Date Time Temp Pulse Resp B/P (MAP) Pulse Ox O2 Delivery O2 Flow Rate FiO2 11/14/17 13:02 64 18 141/68 (92) 94 Room Air 11/14/17 12:01 36.6 78 19 161/88 (112) 95 Room Air 11/14/17 10:01 88 10 145/79 (101) 95 Room Air 11/14/17 09:54 88 15 156/78 (104) 95 Room Air 11/14/17 09:01 87 14 156/78 (104) 95 Room Air 11/14/17 08:01 36.5 80 15 145/82 (103) 93 Room Air 11/14/17 08:00 Room Air 11/14/17 08:00 Room Air 11/14/17 07:01 83 16 161/87 (111) 97 Room Air 11/14/17 06:31 83 16 145/72 (96) 93 11/14/17 06:30 81 94 11/14/17 06:16 84 150/75 (100) 94 Room Air 11/14/17 06:15 80 94 Room Air 11/14/17 06:01 80 145/74 (97) 95 Room Air 11/14/17 06:00 85 18 95 Room Air 11/14/17 05:46 78 141/78 (99) 93 Room Air 11/14/17 05:45 79 92 Room Air 11/14/17 05:31 83 156/81 (106) 96 Room Air 11/14/17 05:30 84 96 Room Air 11/14/17 05:16 81 135/74 (94) 93 Room Air 11/14/17 05:15 80 93 Room Air 11/14/17 05:04 98 Room Air 11/14/17 05:01 78 18 136/74 (94) 91 Room Air 11/14/17 05:00 79 93 Room Air 11/14/17 04:46 36.6 80 152/79 (103) 95 Room Air 11/14/17 04:45 77 97 Room Air 11/14/17 04:30 83 16 95 Room Air 11/14/17 04:25 36.3 69 16 143/79 98 Room Air 11/14/17 04:08 71 16 143/84 (103) 95 Room Air 11/14/17 03:30 77 16 140/74 98 Nasal Cannula 4.0 Post Procedure Recovery Score Activity: (2) Moves 4 extremities * Respiration: (2) Deep breath/cough Circulation: (2) +/-20% PreAnes Value Consciousness: (2) Fully Awake Oxygen Saturation: (2) > 92% On Room Air Post Anesthesia Score: 10 Discharge Sedation Level of Care: Fast Track Phase II Post Sedation Plan On clinical assessment, the patient appears to have tolerated the sedation without complications. Patient is recovering as anticipated. Patient will continue to be monitored by nursing and may be discharged when sedation discharge criteria are met per below protocol. Upon Completions of procedure and additional 15 minutes continue every 5 minute vital signs and the P.A.R. score; then discharge to a Phase I or Fast Track to Phase II per the following guidelines: * Discharge Patient to appropriate Phase II area if PAR is 8 or greater or return to pre- procedure baseline. The post - procedure orders will be as directed. * If PAR score is less than 8 or not return to pre-procedure baseline then patient will follow Phase I monitoring till PAR is reached for Phase II. The Phase I may be done in procedure room or may call to secure a Phase I area. * If naloxone or flumazenil are used for reversal, hold in Phase I for an additional 60 -120 minutes before discharge to Phase II. Please call the Sedation Physician to re-evaluate and complete post-note for discharge to Phase II area. Do NOT discharge from procedure sedation or Phase 1 until post- sedation evaluation note is complete by procedure /sedation MD Sedation Discharge Instructions to be given to the patient at discharge to home.
[2017-11-14] MEDS ORDERED: KETOROLAC TROMETHAMINE 10 MG TAB PO PRN (15:30)
[2017-11-14] MEDS: CARVEDILOL 12.5 MG TAB PO SCH (20:33)
[2017-11-14] MEDS ORDERED: ASPIRIN 81 MG ECTAB PO SCH (21:00)
[2017-11-14] MEDS ORDERED: ATORVASTATIN 40 MG TAB PO SCH (21:00)
[2017-11-15 03:48] VITALS: BP 161/77; PULSE 79; TEMP 36.9; O2SAT 96
[2017-11-15] MEDS ORDERED: CEFAZOLIN SOD 1000MG/7.5 ML IV PUSH IV SCH (06:00)
[2017-11-15 06:45] VITALS: BP 158/99; PULSE 80; TEMP 36.8; O2SAT 96
--- NOTE | 2017-11-15 06:48 | DIAGNOSTIC IMAGING REPORT ---
CHEST 2 VIEWS ROUTINE HISTORY: 82 years-old Male EXACT TIME ORDERED Evaluate for pneumothorax and lead placement status post placement of a left subclavian pacer COMPARISON: Chest radiograph 11/14/2017 TECHNIQUE: PA and lateral views of the chest FINDINGS: Cardiac silhouette is enlarged. Graft of the aortic valve noted. Calcification of the aorta. Improvement of the previously described pulmonary vascular congestion. Status post placement of a dual lead left subclavian pacer with leads overlying the expected locations of the right atrium and right ventricle. The leads appear intact. Lateral view is limited secondary to positioning of the patient's left upper extremity. There is no pneumothorax, pleural effusion, focal airspace consolidation or overt pulmonary edema. Degenerative changes of the shoulders and spine. IMPRESSION: 1. Status post placement of a dual lead left subclavian pacer with leads overlying the regions of the right atrium and right ventricle. No postprocedural pneumothorax identified. 2. Cardiomegaly. The above report was generated using voice recognition software. It may contain grammatical, syntax or spelling errors. Electronically signed by: Paxton Zapien M.D. 11/15/2017 6:46 AM Dictated Date/Time: 11/15/2017 6:44 AM
[2017-11-15 06:52] LABS: HEMATOCRIT 44.2 % (42-52); HEMOGLOBIN 14.8 g/dL (14.0-18.0); MEAN CELL VOLUME 89.1 fL (80-100); MEAN CORPUSCULAR HEMOGLOBIN 29.8 pg (25-34); MEAN CORPUSCULAR HGB CONC 33.5 g/dl (32-36); RED CELL DISTRIBUTION WIDTH CV 13.6 % (11.5-14.5); RED CELL DISTRIBUTION WIDTH SD 44.5 fL (36.4-46.3); WHITE BLOOD COUNT 7.87 K/uL (4.8-10.8)
[2017-11-15 07:01] LABS: PTT PATIENT 26.1 SECONDS (21.0-31.0)
[2017-11-15 07:05] LABS: MEAN PLATELET VOLUME 10.1 fL (7.4-10.4); PLATELET COUNT 98 K/uL (130-400)
[2017-11-15 07:14] LABS: BASO % 0.4 %; BASO ABS # 0.03 K/uL (0-0.2); EOS % 1.1 %; EOS ABS # 0.09 K/uL (0-0.5); IG# 0.02 K/uL (0.00-0.02); LYMPH % 11.6 %; LYMPH ABS # 0.91 K/uL (1.2-3.4); MONO % 10.3 %; MONO ABS # 0.81 K/uL (0.11-0.59); NEUT % 76.3 %; NEUT ABS # 6.01 K/uL (1.4-6.5)
[2017-11-15 07:36] LABS: ALBUMIN 3.2 gm/dl (3.4-5.0); CALCIUM 9.5 mg/dl (8.5-10.1); CREATININE 0.81 mg/dl (0.60-1.40); PHOSPHORUS 2.2 mg/dl (2.5-4.9); POTASSIUM 3.9 mmol/L (3.5-5.1); TOTAL PROTEIN 6.9 gm/dl (6.4-8.2)
[2017-11-15] MEDS: CARVEDILOL 12.5 MG TAB PO SCH (08:07)
--- NOTE | 2017-11-15 08:07 | Discharge Instructions ---
Discharge Instructions Date of Service Nov 15, 2017. Admission Reason for Admission: Heart Block Av Complete Discharge Discharge Diagnosis / Problem: slow heart rate with insertion of pacemaker Discharge Goals Goal(s): Diagnostic testing, Therapeutic intervention Activity Recommendations Activity Limitations: as noted below Lifting Limitations: gradually increase as tolerated . Current Hospital Diet Patient's current hospital diet: AHA Diet (Heart Healthy) Discharge Diet Recommended Diet: Diabetes Type 2 Diet Procedures Procedures Performed: pacemaker insertion, first temporary then permanent Pending Studies Studies pending at discharge: no Laboratory Results Hemoglobin A1c Test 10/26/17 09:05 Range/Units Estimated Average Glucose 163 mg/dl Hemoglobin A1c 7.3 H 4.5-5.6 % Medical Emergencies . Who to Call and When: Medical Emergencies: If at any time you feel your situation is an emergency, please call 911 immediately. . Non-Emergent Contact Non-Emergency issues call your: Primary Care Provider, Food Photographer Call Non-Emergent contact if: temperature is above 101, your pain is not controlled . . "Provider Documentation" section prepared by Zander Boston. .
[2017-11-15] MEDS: INSULIN ASPART 100 UNITS/ML 3 ML PEN SC SCH (08:11)
[2017-11-15] MEDS ORDERED: AMLODIPINE BESYLATE 5 MG TAB PO SCH (09:00)
[2017-11-15] MEDS ORDERED: CLOPIDOGREL BISULFATE 75 MG TAB PO SCH (09:00)
--- NOTE | 2017-11-15 09:16 | Cardiology Follow-Up ---
Subjective Date of Service: Nov 15, 2017. Pt evaluation today including: conversation w/ patient, physical exam, lab review, review of studies, review of inpatient medication list History of Present Illness This is a very pleasant 82-year-old gentleman who has a history of severe aortic stenosis as well as coronary artery disease. He had stent placement in 2016, more recently 5 days prior to admission he had a TAVR placed at [facility]. I believe he had transient heart block after valve replacement and had a temporary pacemaker, but that resolved and he was sent home. Last night he developed periods of complete heart block and his noticed that he was thrashing around in breathing in an odd manner suggesting that he may have had somewhat prolonged episodes of heart block although that was not documented. He does not recall having syncope. He came into the hospital and here he was in sinus rhythm with first-degree AV block and a right bundle branch block pattern. A temporary pacemaker was placed via the right IJ approach. Since this is not likely to be reversible and was serious a dual-chamber pacemaker was implanted yesterday. I started him back on his aspirin, Plavix and carvedilol yesterday. Today he feels well, he has no significant incisional discomfort, he does not have palpitations and is not of chest discomfort. Social History Smoking Status: Never Smoker History of Alcohol Use: No Review of Systems Respiratory: No cough, No wheezing, No shortness of breath Cardiac: No chest pain, No edema Medications Cardiovascular: Item Value Date Time Amlodipine 10 mg 11/15/17 0900 Besylate QAM/PO 11/15/17 0807 (Norvasc Tab) Clopidogrel 75 mg 11/15/17 0900 Bisulfate QAM/PO 11/15/17 0807 (plAVix TAB) Aspirin 81 mg 11/14/17 2100 (Ecotrin Tab) QPM/PO 11/14/172032 Atorvastatin 80 mg 11/14/17 2100 Calcium QPM/PO 11/14/172031 (Lipitor Tab) Carvedilol 12.5 mg 11/14/17 2100 (Coreg Tab) BID/PO 11/15/17 08 Objective Vital Signs Past 12 Hours Date Time Temp Pulse Resp B/P (MAP) Pulse Ox O2 Delivery O2 Flow Rate FiO2 11/15/17 06:45 36.8 80 18 158/99 (118) 96 Room Air 11/15/17 03:48 36.9 79 19 161/77 (105) 96 Room Air 11/14/17 23:19 36.6 84 17 160/84 (109) 94 Room Air 11/14/17 22:00 Room Air 11/14/17 21:52 36.8 85 12 95 11/14/17 21:40 85 12 161/85 (105) 95 Last Recorded Weight-Kilograms: 90.000 Physical Exam Constitutional: General Apperance: heathly-appearing Level of Distress: NAD Lungs: Respiratory effort: no dyspnea, good air movement Auscultation: breath sounds normal, no wheezing Cardiovascular: Heart Auscultation: RRR, no murmurs, no rubs, no gallops Peripheral Pulses: Bruits: none appreciated Extremities: no edema The incision looks clean, slight bleeding on the dressing but nothing significant. No swelling, minor ecchymosis. Data Laboratory Results: Last 24 Hours Test 11/14/17 11:58 11/14/17 13:18 11/14/17 16:10 11/14/17 20:29 Bedside Glucose 127 mg/dl 113 mg/dl 204 mg/dl Troponin I 0.108 ng/ml Test 11/14/17 21:18 11/15/17 06:43 11/15/17 07:24 Troponin I 0.208 ng/ml 0.139 ng/ml White Blood Count 7.87 K/uL Red Blood Count 4.96 M/uL Hemoglobin 14.8 g/dL Hematocrit 44.2 % Mean Corpuscular Volume 89.1 fL Mean Corpuscular Hemoglobin 29.8 pg Mean Corpuscular Hemoglobin Concent 33.5 g/dl Platelet Count 98 K/uL Mean Platelet Volume 10.1 fL Neutrophils (%) (Auto) 76.3 % Lymphocytes (%) (Auto) 11.6 % Monocytes (%) (Auto) 10.3 % Eosinophils (%) (Auto) 1.1 % Basophils (%) (Auto) 0.4 % Neutrophils # (Auto) 6.01 K/uL Lymphocytes # (Auto) 0.91 K/uL Monocytes # (Auto) 0.81 K/uL Eosinophils # (Auto) 0.09 K/uL Basophils # (Auto) 0.03 K/uL RDW Standard Deviation 44.5 fL RDW Coefficient of Variation 13.6 % Immature Granulocyte % (Auto) 0.3 % Immature Granulocyte # (Auto) 0.02 K/uL Giant Platelets 1+ Prothrombin Time 11.0 SECONDS Prothromb Time International Ratio 1.0 Activated Partial Thromboplast Time 26.1 SECONDS Partial Thromboplastin Ratio 1.0 Sodium Level 138 mmol/L Potassium Level 3.9 mmol/L Chloride Level 104 mmol/L Carbon Dioxide Level 27 mmol/L Anion Gap 8.0 mmol/L Blood Urea Nitrogen 13 mg/dl Creatinine 0.81 mg/dl Est Creatinine Clear Calc Drug Dose 77.2 ml/min Estimated GFR () 95.9 Estimated GFR (Non- 82.8 BUN/Creatinine Ratio 16.1 Random Glucose 153 mg/dl Calcium Level 9.5 mg/dl Phosphorus Level 2.2 mg/dl Magnesium Level 1.9 mg/dl Total Bilirubin 1.1 mg/dl Direct Bilirubin 0.3 mg/dl Aspartate Amino Transf (AST/SGOT) 54 U/L Alanine Aminotransferase (ALT/SGPT) 105 U/L Alkaline Phosphatase 103 U/L Total Protein 6.9 gm/dl Albumin 3.2 gm/dl Bedside Glucose 144 mg/dl Imaging: Chest x-ray shows good lead position, no pneumothorax EKG: Atrial sensing and ventricular pacing primarily, appropriate function Telemetry reviewed: Predominantly ventricular pacing throughout, some AV conduction Pacemaker evaluation: The system is working very well with excellent pacing and sensing characteristics. There is however an anomaly which results in extra atrial beats, this appears to be due to poor AV conduction and when we allow a long AV interval he has retrograde VA conduction following the ventricular paced beat. Without the long AV interval we need to pace him frequently. This in part may be due to beta-blockade, we did not observe this yesterday when he was not on his carvedilol. Assessment and Plan 1. Complete heart block: 5 days post TAVR he had documented intermittent complete heart block. I believe he also had early postoperatively but it appeared to resolve. He presents with a symptomatic period of complete heart block and near syncope or more likely syncope and loss of consciousness but he was in bed. He clearly needed a pacemaker. He is conducting with a first- degree AV block most the time with a right bundle branch block pattern. Probably he has transient left bundle branch block as well resulting in complete heart block. With this will progress or resolve is not clear. 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 2. Right bundle branch block: He had a right bundle branch block pattern with a normal NC interval preceding his valve replacement. His intraventricular conduction pattern is the same now but he has first-degree AV block, possibly due to partial effect on the left bundle branch or the AV node. 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 The pacemaker can accommodate it but the programming is a little bit difficult due to retrograde V to A conduction. This forces us to use a short AV interval. This could be due to His-Purkinje disease, however the fact that it worsened once we started carvedilol after the procedure suggested may be AV misti. I am therefore going to discontinue the carvedilol and not use beta blockers for now , he has a normal left ventricular ejection fraction and even though he has coronary disease I do not know that he needs a beta-lakisha. 4. Postop day #1: He is doing well postop day #1, the site looks good, the pacer is functioning well and his chest x-ray shows good lead position and no pneumothorax. He is stable for discharge from my standpoint. I will set him up for follow-up visit in 2 days for a wound check. We may check his pacemaker at that time as well. Thank you for allowing me to participate in his care.
--- NOTE | 2017-11-15 09:21 | Discharge Instructions ---
Discharge Instructions Date of Service Nov 15, 2017. Admission Reason for Admission: Heart Block Av Complete Discharge Discharge Diagnosis / Problem: Dual-chamber pacemaker implantation Discharge Goals Goal(s): Improve disease control Activity Recommendations Activity Limitations: per Instructions/Follow-up section . Instructions / Follow-Up Instructions / Follow-Up ACTIVITY RECOMMENDATIONS: * Do not raise affected arm over head for 2 weeks. SPECIAL CARE INSTRUCTIONS: * If bleeding occurs, apply direct pressure to area for 5 minutes. * Call your doctor if you have severe pain, fever, drainage or bleeding at site. * Keep dressing on and dry for 48 hours then remove. * Keep any scheduled doctor's appointment. * Implant Card - hand held device with website information given. SKIN IRRITATION: * You may experience some redness and/or swelling in the area where radiation was administered. If any skin irritation occurs, please contact your family physician. FOLLOW UP VISIT: Dr. Theodore (Dr. Nascimento office) Friday, November 17, 2017, 10:30 AM. Current Hospital Diet Patient's current hospital diet: AHA Diet (Heart Healthy) Discharge Diet Recommended Diet: N/A Procedures Procedures Performed: pacemaker insertion, first temporary then permanent Pending Studies Studies pending at discharge: no Laboratory Results Hemoglobin A1c Test 10/26/17 09:05 Range/Units Estimated Average Glucose 163 mg/dl Hemoglobin A1c 7.3 H 4.5-5.6 % Medical Emergencies . Who to Call and When: Medical Emergencies: If at any time you feel your situation is an emergency, please call 911 immediately. . Non-Emergent Contact Non-Emergency issues call your: Primary Care Provider . . "Provider Documentation" section prepared by Eliel Theodore. .
[2017-11-15 11:05] VITALS: BP 158/99; PULSE 80; TEMP 36.8; O2SAT 96
--- NOTE | 2017-11-15 16:24 | Discharge Summary ---
Discharge Summary Date of Service Nov 15, 2017. Discharge Summary Admission Date: Nov 14, 2017 at 04:28 Discharge Date: Nov 15, 2017 Discharge Disposition: Home Principal Diagnosis: heart block with pacemaker insertion Immunizations: Have You Had Influenza Vaccine: Unknown History of Tetanus Vaccine?: Unknown History of Pneumococcal: Unknown History of Hepatitis B Vaccine: Unknown Medication Reconciliation Continued Medications: Acetaminophen (Tylenol) 500 Mg Tab 1000 MG PO HS PRN for Pain Albuterol Hfa (Ventolin Hfa) 200 Puffs/65738 Mcg Aers 2-4 PUFFS INH Q6H PRN for SOB/Wheezing Amlodipine Besylate (Norvasc) 10 Mg Tab 10 MG PO QAM Aspirin (Aspirin 81) 81 Mg Tab 81 MG PO QPM Atorvastatin (Lipitor) 80 Mg Tab 80 MG PO QPM Azelastine Hcl (Astelin Nasal [place]) 200 Sprays/30 Ml [place] 1-2 SPRAYS NA BID PRN for Nasal Congestion Budesonide/Formoterol Fumarate (Symbicort 160/4.5 Inhaler ) Aero 2 PUFFS INH BID, INHALER Canagliflozin (Invokana) 300 Mg Tab 300 MG PO DAILYBB Carvedilol (Coreg) 12.5 Mg Tab 12.5 MG PO BID, TAB Chlorpheniramine Maleate (Allergy) 12 Mg Tab 4 MG PO every 4 hrs PRN for allergy Cholecalciferol (Vitamin D3) 2,000 Unit Cap 1 CAP PO BID, CAP 3 Refills Chromium (Chromium) 200 Mcg Tab 200 MCG PO QPM Clopidogrel (Plavix) 75 Mg Tab 75 MG PO QAM, TAB Coenzyme Q10 (Ubidecarenone) (Coq10) 100 Mg Cap 100 MG PO QPM Cyanocobalamin (B-12) 2,500 Mcg Tab 1 TAB PO QAM Finasteride (Proscar) 5 Mg Tab 5 MG PO QAM Fluocinonide (Fluocinonide) 0.05 % Gel 1 INCH TOP PRN for skin irritation Guaifenesin (Robitussin) 100 Mg/5 Ml Katja 1 DOSE PO UD PRN for Cough sugar free Guaifenesin Ext Rel (Mucinex Ext Rel) 600 Mg Tab 1200 MG PO Q12 PRN for Nasal Congestion, TAB Liraglutide (Victoza) 18 Mg/3 Ml Inj 1.8 MG SQ DAILYBB for diabetes Melatonin-Pyridoxine (Melatonin) 1 Tab Tab 2 TABS PO nightly Metformin Hcl (Glucophage) 1,000 Mg Tab 1000 MG PO BID, TAB Metronidazole (Topical) (Metrogel) 0.75 % Gel 1 APPLN TOP QPM apply to rosacea Multiple Vitamin (Multivitamin) 1 Tab Tab 1 TAB PO QPM, TAB Potassium Chloride (K-Tab) 20 Meq Tab 20 MEQ PO BID Valsartan (Diovan) 320 Mg Tab 320 MG PO QAM please take one half of ususal dose until seen by cardiology in follow up Discharge Exam Review of Systems: Constitutional: No fever, No chills, No weakness Respiratory: No cough, No sputum, No shortness of breath Cardiovascular: No chest pain, No edema Abdomen: No pain, No nausea, No diarrhea Physical Exam: General Appearance: WD/WN, no apparent distress Neurologic/Psychiatric: alert, oriented x 3 Skin: normal color, warm/dry, no rash Hospital Course 82 M Complete heart block/status post TAVR e 11/08/17 /status post temporary transvenous pacer placement by Dr. Naranjo Complete heart block, did have transient heart block after procedure initially that resolved,, s/p permanent pacemaker CAD/HTN holding amlodipine, aspirin, carvedilol, clopidogrel and valsartan. Blood pressure is acceptable Diabetes mellitus--resume metformin 1000 mg p.o. twice daily, Victoza 1.8 mg subcu daily with breakfast, chromium 200 mcg p.o. every evening and Invokana 300 mg p.o. daily with COPD--clinically stable on Symbicort 160/4.5, 2 puffs twice daily and albuterol HFA 2 puffs every 6 hours as needed. BPH-- Proscar. Hyperlipidemia-- atorvastatin 80 mg . will follow up with both Dr Theodore and [facility] Time Spent: Greater than 30 minutes This includes examination of the patient, discharge planning, medication reconciliation, and communication with other providers. Discharge Instructions Please refer to the electronic Patient Visit Report (Discharge Instructions) for additional information.
[2017-11-16] MEDS ORDERED: PANTOprazole SOD 40 MG TAB PO SCH (09:00)
--- NOTE | 2017-11-24 07:03 | EDITING REQUIRED CODING QUERY ---
CODING QUERY To promote full compliance with coding requirements relating to patient care, provider participation is requested in all cases of videogame designer uncertainty. Please assist us with the question(s) below: Coding Question(s): Please clarify below, in your clinical opinion, regarding the Complete Heart Block s/p TAVR 11/08/17 with documentation of did have transient heart block after procedure initially that resolved. ( xx ) Complete Heart Block was likely a postoperative complication ( ) Complete Heart Block was Not likely a postoperative complication Physician's Response(s): Thank you Symone Reyna Principal Diagnosis: "_that condition established after study, to be chiefly responsible for occasioning the admission of the patient to the hospital for care." Co-Existing Principal Diagnosis: "_when two or more diagnoses equally meet the criteria for principal diagnosis as determined by the circumstances of admission, diagnostic work up, and/or therapy provided, and the Alphabetic Index, Tabular List, or another coding guideline does not provide sequencing direction, any one of the diagnoses may be sequenced first." "When the physician has documented what appears to be a current diagnosis in the body of the record, but has not included the diagnosis in the final diagnostic statement, the physician should be asked whether the diagnosis should be added." (Source Coding [facility] 2 QTR90. p3-4)
== END 2017-11-15 12:30 | disposition home or self-care (01) | DRG 243 ==
LOC: C.EDB 02:53 → C.MSICU 04:28 → ENRESERV 21:42 → C.2E 22:30
PROVIDERS: ADMIT Internal Medicine Interventional Cardiology; ATTEND Internal Medicine
PROC: 02HK3MZ Insertion of Cardiac Lead into Right Ventricle, Percutaneous Approach (ICD-10-PCS; 2017-11-14)
PROC: 0JH606Z Insertion of Pacemaker, Dual Chamber into Chest Subcutaneous Tissue and Fascia, Open Approach (ICD-10-PCS; principal; 2017-11-14 03:33)
PROC: 02HK3JZ Insertion of Pacemaker Lead into Right Ventricle, Percutaneous Approach (ICD-10-PCS; principal; 2017-11-14 03:33)
PROC: 02PA3MZ Removal of Cardiac Lead from Heart, Percutaneous Approach (ICD-10-PCS; principal; 2017-11-14 03:33)
PROC: 02H63JZ Insertion of Pacemaker Lead into Right Atrium, Percutaneous Approach (ICD-10-PCS; principal; 2017-11-14 03:33)
DX: I97.190 Other postprocedural cardiac functional disturbances following cardiac surgery (principal); I44.2 Atrioventricular block, complete; I11.9 Hypertensive heart disease without heart failure; E11.9 Type 2 diabetes mellitus without complications; J44.9 Chronic obstructive pulmonary disease, unspecified; E78.5 Hyperlipidemia, unspecified; N40.0 Benign prostatic hyperplasia without lower urinary tract symptoms; Z79.899 Other long term (current) drug therapy; Z79.02 Long term (current) use of antithrombotics/antiplatelets; Z79.82 Long term (current) use of aspirin; Z79.84 Long term (current) use of oral hypoglycemic drugs; Z95.3 Presence of xenogenic heart valve; Z91.040 Latex allergy status; Z91.048 Other nonmedicinal substance allergy status; Z83.3 Family history of diabetes mellitus; Z82.49 Family history of ischemic heart disease and other diseases of the circulatory system; Y83.1 Surgical operation with implant of artificial internal device as the cause of abnormal reaction of the patient, or of later complication, without mention of misadventure at the time of the procedure